=== PATIENT | male | born 1940 | race Caucasian/White ===

== ENCOUNTER 2019-04-22 08:06 | Inpatient (IN) | payer MEDICARE ==
[~2019-04-22] VITALS: Ht 175.3 cm; Wt 82.6 kg
[2019-04-22 08:52] LABS: BASOPHILS # (AUTO) 0.1 K/uL (0.0-8.0); BASOPHILS % (AUTO) 1.3 % (0.0-2.0); EOSINOPHILS # (AUTO) 0.3 K/uL (0.0-0.7); EOSINOPHILS % (AUTO) 2.7 % (0.0-7.0); HEMATOCRIT 42.5 % (36.7-47.1); LYMPHOCYTES # (AUTO) 1.4 K/uL (20.0-40.0); LYMPHOCYTES % (AUTO) 14.5 % (20.5-51.5); MEAN CORPUSCULAR HEMOGLOBIN 29.7 uug (23.8-33.4); MEAN CORPUSCULAR HGB CONC 33 g/dL (32.5-36.3); MEAN CORPUSCULAR VOLUME 90.4 fL (73.0-96.2); MONOCYTES # (AUTO) 0.9 K/uL (2.0-10.0); MONOCYTES % (AUTO) 9.4 % (0.0-11.0); NEUTROPHILS # (AUTO) 7.1 K/uL (1.8-8.9); NEUTROPHILS % (AUTO) 72.1 % (38.5-71.5); PLATELET COUNT (AUTO) 388 K/uL (152-348); WHITE BLOOD COUNT (AUTO) 9.9 K/uL (3.6-10.2)
[2019-04-22 10:21] LABS: *BILIRUBIN,URIN NEGATIVE (NEGATIVE); *CLARITY,URINE CLEAR (CLEAR); *COLOR,URINE YELLOW (YELLOW); *KETONES,URINE NEGATIVE (NEGATIVE); *UROBILINOGEN,URINE 0.2 E.U./dl (NORMAL); LEUKOCYTE ESTERASE ,URINE NEGATIVE (NEGATIVE); NITRITE, URINE NEGATIVE (NEGATIVE); PH,URINE 6.5 (5.0-8.0); UGLUCOSE NEGATIVE (NEGATIVE)
[2019-04-22 10:38] LABS: *BLOOD, URINE TRACE INTACT (NEGATIVE)
[2019-04-22 10:41] LABS: BACTERIA,URINE NONE SEEN /HPF (NONE SEEN); RBC,URINE 0-3 /HPF (0-3); SQUAMOUS EPITHELIAL CELL,UR FEW /HPF (NONE SEEN); WBC,URINE 0-3 /HPF (0-3)
[2019-04-22] MEDS ORDERED: HYDROMORPHONE 2 MG/1 ML DISP.SYRIN ONE (11:31)
[2019-04-22] MEDS ORDERED: BUPIVACAINE PF 0.5% 30 ML VIAL ONE (11:44)
[2019-04-22] MEDS ORDERED: FENTANYL CITRATE 100 MCG/2 ML AMPUL ONE (13:02)
[2019-04-22] MEDS ORDERED: HYDROMORPHONE 1 MG/1 ML DISP.SYRIN ONE (13:13)
[2019-04-22] MEDS ORDERED: POLYMYXIN B SULFATE 500,000 UNITS, BACITRACIN 50,000 UNITS, NORMAL SALINE 20 ML MC ONE ×3 (13:15)
[2019-04-22] MEDS ORDERED: ONDANSETRON 4 MG/2 ML VIAL ONE (13:20)
[2019-04-22] MEDS ORDERED: MORPHINE SULFATE 2 MG/1 ML DISP.SYRIN IV PRN (13:30)
[2019-04-22] MEDS ORDERED: IV D5W-0.45% NS +20 KCL 1,000 ML IV ONE (14:01)
[2019-04-22] MEDS ORDERED: OXYC5CAP18 PO (14:50)
[2019-04-22] MEDS ORDERED: IBUP200C5 PO (14:50)
[2019-04-22] MEDS ORDERED: ASPI81TA44 PO (14:50)
[2019-04-22] MEDS ORDERED: ATOR20TA PO (14:50)
[2019-04-22] MEDS ORDERED: VITAMIND3 PO (14:51)
[2019-04-22] MEDS ORDERED: METO25TA6 PO (14:51)
[2019-04-22] MEDS ORDERED: VITA-287 PO (14:51)
[2019-04-22] MEDS ORDERED: VITAMIN C (14:51)
[2019-04-22] MEDS ORDERED: MULT-24 PO (14:51)
[2019-04-22] MEDS ORDERED: GLUC-141 PO (14:53)
[2019-04-22] MEDS ORDERED: COQ10 PO (14:53)
[2019-04-22] MEDS ORDERED: TURMERIC PO (14:53)
[2019-04-22] MEDS ORDERED: MAGNESIUM HYDROXIDE 30 ML LIQUID UDC PO PRN (15:00)
[2019-04-22] MEDS ORDERED: ACETAMINOPHEN 325 MG TABLET PO PRN (15:00)
[2019-04-22] MEDS ORDERED: ONDANSETRON 4 MG/2 ML VIAL IV PRN (15:00)
[2019-04-22] MEDS ORDERED: HYDROCODONE/APAP 5-325MG TABLET PO PRN (15:00)
[2019-04-22] MEDS ORDERED: Z GUARD REMEDY PASTE 57 GM TUBE TOP PRN (15:00)
[2019-04-22] MEDS ORDERED: Medication Not On Formulary EA (Oxycodone Hcl 5 MG) PO PRN (15:15)
[2019-04-22 16:01] VITALS: BP 142/55
[2019-04-22] MEDS: POTASSIUM CHLORIDE 20 MEQ in IV D5 1/2 NS 1000 ML 1,000 ML IV PRN (17:45)
--- NOTE | 2019-04-22 18:39 | NUR ---
Received pt. resting in bed with family at bedside. Pt. s/p ORIF right femoral neck fracture. Pt. has IV in r forearm intact patent running prescribed fluid at 75 mls/ hr. bilateral pedal pulses present. Ice pack on R femor. Dressing is clean and dry. Pt. on 3 L NC. Pt. denies pain/ discomfort. Pt. denies SOB / difficulty breathing. Safety measures in place. call light within reach. will continue to monitor pt.
--- NOTE | 2019-04-22 19:30 | NUR ---
Received patient in bed AAOx4. No complaints of pain at this time. IV on RFA intact and patent w/ IVF infusing. s/p ORIF of R femoral neck fx, w/ clean, dry dressing in place. Instructed patient to use Incentive spirometer. Safety measures observed. Call light in reach
[2019-04-22 20:00] VITALS: BP 118/55
[2019-04-22] MEDS: METOPROLOL TARTRATE 25 MG TABLET PO SCH (21:00)
[2019-04-22] MEDS: HEPARIN SODIUM,PORCINE 5,000 UNITS/ML VIAL SQ SCH (21:06)
[2019-04-22] MEDS: ZOLPIDEM 5 MG TABLET PO PRN (22:00)
[2019-04-22] MEDS: HYDROCODONE/APAP 10-325 MG TABLET PO PRN (22:24)
[2019-04-23 04:50] VITALS: BP 110/55
[2019-04-23] MEDS: POTASSIUM CHLORIDE 20 MEQ in IV D5 1/2 NS 1000 ML 1,000 ML IV PRN ×2 (06:27→20:45)
--- NOTE | 2019-04-23 06:40 | NUR ---
Patient slept well. No complaints of pain at this time. All needs attended. Will endorse accordingly
[2019-04-23 06:52] LABS: BASOPHILS % (AUTO) 0.1 % (0.0-2.0); EOSINOPHILS % (AUTO) 0.1 % (0.0-7.0); HEMATOCRIT 38.8 % (36.7-47.1); HEMOGLOBIN 12.8 g/dL (12.5-16.3); LYMPHOCYTES # (AUTO) 1.3 K/uL (20.0-40.0); LYMPHOCYTES % (AUTO) 7.6 % (20.5-51.5); MEAN CORPUSCULAR HEMOGLOBIN 29.1 uug (23.8-33.4); MEAN CORPUSCULAR HGB CONC 33 g/dL (32.5-36.3); MEAN CORPUSCULAR VOLUME 88.1 fL (73.0-96.2); MONOCYTES # (AUTO) 1.3 K/uL (2.0-10.0); MONOCYTES % (AUTO) 7.7 % (0.0-11.0); NEUTROPHILS # (AUTO) 14.1 K/uL (1.8-8.9); NEUTROPHILS % (AUTO) 84.5 % (38.5-71.5); PLATELET COUNT (AUTO) 415 K/uL (152-348); WHITE BLOOD COUNT (AUTO) 16.7 K/uL (3.6-10.2)
[2019-04-23 06:58] LABS: CARBON DIOXIDE 27 mmol/L (21-32); CHLORIDE 103 mmol/L (98-107); CHOLESTEROL 138 mg/dL (<200); CREATININE 1.1 mg/dL (0.6-1.3); GLUCOSE 137 mg/dL (74-106); HDL CHOLESTEROL 50 mg/dL (40-60); MAGNESIUM 1.6 mg/dL (1.8-2.4); PHOSPHOROUS 3.7 mg/dL (2.5-4.9); POTASSIUM 4.5 mmol/L (3.5-5.1); TRIGLYCERIDES 67 MG/DL (30-150); UREA NITROGEN, BLOOD 18 mg/dL (7-18)
[2019-04-23] MEDS ORDERED: Medication Not On Formulary EA (Gluc/Chon-Msm#2/C/D3/Mang/Born (Glucosamin-Chondroitin-M PO SCH (09:00)
[2019-04-23] MEDS ORDERED: IBUPROFEN 200 MG PO SCH (09:00)
[2019-04-23] MEDS: ATORVASTATIN 20 MG TABLET PO SCH (09:42)
[2019-04-23] MEDS: ASPIRIN EC 81 MG TABLET.DR PO SCH (09:42)
[2019-04-23] MEDS: HYDROCODONE/APAP 10-325 MG TABLET PO PRN ×3 (09:44→21:37)
[2019-04-23] MEDS: MULTIVITAMINS,THERAPEUTIC TABLET PO SCH (09:44)
[2019-04-23] MEDS: METOPROLOL TARTRATE 25 MG TABLET PO SCH ×2 (09:45→20:48)
[2019-04-23] MEDS: HEPARIN SODIUM,PORCINE 5,000 UNITS/ML VIAL SQ SCH ×2 (09:46→20:55)
[2019-04-23 11:05] VITALS: BP 115/50
[2019-04-23] MEDS ORDERED: MAGNESIUM OXIDE 400 MG TABLET PO ONE (11:30)
[2019-04-23] MEDS: VITAMIN B COMPLEX 1 TABLET PO SCH (14:46)
[2019-04-23 15:21] VITALS: BP 111/42
--- NOTE | 2019-04-23 19:30 | NUR ---
Received patient in bed AAOx4 w/ Family at bedside. No complaints of pain at this time. IV on RFA intact and patent w/ IVF infusing. Safety measures observed. Call light in reach
[2019-04-23 20:00] VITALS: BP 123/54
[2019-04-23] MEDS: ZOLPIDEM 5 MG TABLET PO PRN (22:03)
[2019-04-24 04:30] VITALS: BP 150/69
--- NOTE | 2019-04-24 06:47 | NUR ---
Patient requested for sleeping pill last night and slept well throughout the night. No complaints of pain at this time. All needs attended. Will endorse accordingly
--- NOTE | 2019-04-24 08:04 | NUR ---
RECEIVED PT RESTING IN BED. PT DENIES PAIN AT THIS TIME. NO ACUTE DISTRESS NOTED. NO SOB NOTED. BED LOCKED. BED IN LOW POSITION. CALL LIGHT WITHIN REACH. WILL CONTINUE TO MONITOR.
[2019-04-24] MEDS: VITAMIN B COMPLEX 1 TABLET PO SCH (09:50)
[2019-04-24] MEDS: ASPIRIN EC 81 MG TABLET.DR PO SCH (09:53)
[2019-04-24] MEDS: ATORVASTATIN 20 MG TABLET PO SCH (09:54)
[2019-04-24] MEDS: HEPARIN SODIUM,PORCINE 5,000 UNITS/ML VIAL SQ SCH (09:54)
[2019-04-24] MEDS: MULTIVITAMINS,THERAPEUTIC TABLET PO SCH (09:54)
[2019-04-24] MEDS: METOPROLOL TARTRATE 25 MG TABLET PO SCH (09:55)
[2019-04-24] MEDS: HYDROCODONE/APAP 10-325 MG TABLET PO PRN ×2 (10:05→15:17)
[2019-04-24] MEDS: POTASSIUM CHLORIDE 20 MEQ in IV D5 1/2 NS 1000 ML 1,000 ML IV PRN (10:11)
[2019-04-24 11:38] VITALS: BP 166/72
[2019-04-24 11:46] VITALS: BP 166/72
--- NOTE | 2019-04-24 12:00 | NUR ---
ORDER FOR DISCHARGE TO [facility] ARU RECEIVED.
[2019-04-24 12:45] VITALS: BP 126/51
--- NOTE | 2019-04-24 15:30 | NUR ---
PT DISCHARGED TO [facility] ARU UNIT. NO ACUTE DISTRESS OR SOB NOTED. ALL BELONGINGS RETURNED. DISCHARGE INSTRUCTIONS GIVEN TO PATIENT AND RECEIVING ARU STAFF. PAIN MEDS GIVEN PRIOR TO DISCHARGE. PT ESCORTED TO ARU ROOM 106 BY RN AND BEATER DUMPER VIA BED. DISCHARGE TRANSFER COMPLETED.
[2019-04-24] MEDS ORDERED: SEVOFLURANE 250 ML BOTTLE IH ONE (17:29)
[2019-04-24] MEDS ORDERED: KETOROLAC TROMETHAMINE 30 MG INJ IM ONE (17:29)
[2019-04-24] MEDS ORDERED: ONDANSETRON 4 MG/2 ML VIAL IV ONE (17:29)
[2019-04-24] MEDS ORDERED: LIDOCAINE-MPF 2% 5 ML VIAL IJ ONE (17:29)
[2019-04-24] MEDS ORDERED: DEXAMETHASONE SOD PHOSPHATE 4 MG INJ IV ONE (17:29)
[2019-04-24] MEDS ORDERED: CEFAZOLIN 1 G VIAL IM ONE (17:29)
[2019-04-24] MEDS ORDERED: PROPOFOL 200 MG/20 ML BOTTLE IV ONE (17:29)
[2019-04-24] MEDS ORDERED: IV NORMAL SALINE 1000 ML BAG IV ONE (17:29)
[2019-04-24] MEDS ORDERED: GLYCOPYRROLATE 0.2 MG/ML VIAL IJ ONE (17:29)
[2019-04-24] MEDS ORDERED: HYDR-4354 PO (18:32)
[2019-04-24] MEDS ORDERED: SENN-18 PO (18:32)
[2019-04-24] MEDS ORDERED: MAGN400O6 PO (18:32)
[2019-04-24] MEDS ORDERED: HEPA500034 SUBCUT (18:32)
[2019-04-24] MEDS ORDERED: METO25TA6 PO (18:32)
[2019-04-24] MEDS ORDERED: ACET-2154 PO (18:32)
== END 2019-04-24 17:30 | DRG 482 ==
LOC: DS 08:06 → MEDSURG3 13:53
PROVIDERS: ADMIT Hospitalist; ATTEND Hospitalist
PROC: 0QS604Z Reposition Right Upper Femur with Internal Fixation Device, Open Approach (ICD-10-PCS; principal; 2019-04-22)
DX: S72.001A Fracture of unspecified part of neck of right femur, initial encounter for closed fracture (principal); W01.0XXA Fall on same level from slipping, tripping and stumbling without subsequent striking against object, initial encounter; Y92.89 Other specified places as the place of occurrence of the external cause; I25.10 Atherosclerotic heart disease of native coronary artery without angina pectoris; Z95.5 Presence of coronary angioplasty implant and graft; F17.210 Nicotine dependence, cigarettes, uncomplicated; E78.5 Hyperlipidemia, unspecified; Z79.899 Other long term (current) drug therapy; Z79.82 Long term (current) use of aspirin; I10 Essential (primary) hypertension; Z82.49 Family history of ischemic heart disease and other diseases of the circulatory system; D72.829 Elevated white blood cell count, unspecified
CPT/HCPCS: 36415; 71045; 73503; 83735; 84100; 85025; A4649; A4663; C1713; G0378; J0690; J1100; J1170; J1644; J1885; J2405; J3010; J3480; J3490; J7030; J7120

== ENCOUNTER 2019-04-24 12:05 | Inpatient (IN) | payer MEDICARE ==
[~2019-04-24] VITALS: Ht 175.3 cm; Wt 82.6 kg
[~2019-04-24 12:05] MED LIST: ASPI81TA44 PO; ATOR20TA PO; COQ10 PO; GLUC-141 PO; IBUP200C5 PO; METO25TA6 PO; MULT-24 PO; OXYC5CAP18 PO; TURMERIC PO; VITA-287 PO; VITAMIN C; VITAMIND3 PO
[2019-04-24] MEDS ORDERED: Z GUARD REMEDY PASTE 57 GM TUBE TOP PRN (16:15)
[2019-04-24] MEDS ORDERED: ACET-2154 PO (18:32)
[2019-04-24] MEDS ORDERED: METO25TA6 PO (18:32)
[2019-04-24] MEDS ORDERED: SENN-18 PO (18:32)
[2019-04-24] MEDS ORDERED: HYDR-4354 PO (18:32)
[2019-04-24] MEDS ORDERED: HEPA500034 SUBCUT (18:32)
[2019-04-24] MEDS ORDERED: MAGN400O6 PO (18:32)
--- NOTE | 2019-04-24 19:00 | NUR ---
Admitted this 79 y/o male from [facility] medsurge unit, with diagnosis of right femoral neck fracture S/P ORIF (04/22/19) by Dr. Coello. Patient is alert, oriented x 4 not in any form of distress at 2LPM via nasal cannula. He denies any pain or discomfort at this time. With peripheral IV line on right forearm G20, patent with no signs of infection. Original surgical dressing in place, clean and dry. Routine admission care done. Oriented patient to staff, room and use of room amenities and functions with verbalized understanding. Assisted with his needs. Call light and frequently used items placed within reach. Dr. Ames made aware of admission, verified medications and laboratory orders and need to reconcile medications. Dr. Shine informed of admission.
--- NOTE | 2019-04-24 20:00 | NUR ---
Received pt resting in bed. AAO x4. On 1L O2 via NC. No acute distress noted. Safety measures maintained. Call light and personal items within reach. Will continue to monitor.
[2019-04-24 20:11] VITALS: BP 132/62
[2019-04-24] MEDS ORDERED: Medication Not On Formulary EA (Heparin Sodium,Porcine (Heparin Sodium) 5,000 UNIT) SUBCUT SCH (21:00)
--- NOTE | 2019-04-24 21:00 | NUR ---
Change of assignment. SBAR reported to Leandra GALLARDO.
[2019-04-24] MEDS: SENNOSIDES 1 TABLET PO SCH (21:02)
[2019-04-24] MEDS: METOPROLOL TARTRATE 25 MG TABLET PO SCH (21:03)
[2019-04-24] MEDS: HYDROCODONE/APAP 10-325 MG TABLET PO PRN (21:04)
[2019-04-24] MEDS: HEPARIN SODIUM,PORCINE 5,000 UNITS/ML VIAL SQ SCH (22:03)
[2019-04-25 03:40] VITALS: BP 134/68
[2019-04-25] MEDS: ACETAMINOPHEN 325 MG TABLET PO PRN ×2 (03:40→10:08)
[2019-04-25] MEDS ORDERED: HYDROCODONE/APAP 10-325 MG TABLET ONE (03:41)
--- NOTE | 2019-04-25 05:43 | NUR ---
patient is alert and oriented. refused skin check and check of the incision site, unable to take a picture and document. will inform the physician in am.
[2019-04-25] MEDS: HYDROCODONE/APAP 10-325 MG TABLET PO PRN ×3 (06:10→20:21)
[2019-04-25 07:30] VITALS: BP 132/55
[2019-04-25] MEDS ORDERED: Medication Not On Formulary EA (Gluc/Chon-Msm#2/C/D3/Mang/Born (Glucosamin-Chondroitin-M PO SCH (09:00)
[2019-04-25] MEDS: MULTIVITAMINS,THERAPEUTIC TABLET PO SCH (09:13)
[2019-04-25] MEDS: ATORVASTATIN 20 MG TABLET PO SCH (09:13)
[2019-04-25] MEDS: ASPIRIN EC 81 MG TABLET.DR PO SCH (09:13)
[2019-04-25] MEDS: VITAMIN B COMPLEX 1 TABLET PO SCH (09:13)
[2019-04-25] MEDS: MAGNESIUM HYDROXIDE 30 ML LIQUID UDC PO SCH (09:14)
[2019-04-25] MEDS: METOPROLOL TARTRATE 25 MG TABLET PO SCH ×2 (09:14→20:21)
[2019-04-25] MEDS: HEPARIN SODIUM,PORCINE 5,000 UNITS/ML VIAL SQ SCH ×2 (09:16→20:30)
--- NOTE | 2019-04-25 14:22 | NUR ---
INTERDISCIPLINARY TEAM CONFERENCE
[2019-04-25 16:00] VITALS: BP 118/48
[2019-04-25] MEDS: SENNOSIDES 1 TABLET PO SCH (20:20)
[2019-04-25 21:37] VITALS: BP 133/67
--- NOTE | 2019-04-26 03:34 | NUR ---
pt is currently sleeping. pain is well managed with current regimen. No fever, no nausea and no vomiting.
[2019-04-26 05:11] VITALS: BP 135/61
[2019-04-26 08:16] VITALS: BP 115/61
[2019-04-26] MEDS: ATORVASTATIN 20 MG TABLET PO SCH (08:23)
[2019-04-26] MEDS: VITAMIN B COMPLEX 1 TABLET PO SCH (08:23)
[2019-04-26] MEDS: ASPIRIN EC 81 MG TABLET.DR PO SCH (08:23)
[2019-04-26] MEDS: MULTIVITAMINS,THERAPEUTIC TABLET PO SCH (08:23)
[2019-04-26] MEDS: METOPROLOL TARTRATE 25 MG TABLET PO SCH ×2 (08:25→20:38)
[2019-04-26] MEDS: MAGNESIUM HYDROXIDE 30 ML LIQUID UDC PO SCH (08:26)
[2019-04-26] MEDS: HEPARIN SODIUM,PORCINE 5,000 UNITS/ML VIAL SQ SCH ×2 (08:36→20:47)
[2019-04-26] MEDS: HYDROCODONE/APAP 10-325 MG TABLET PO PRN ×2 (08:38→20:39)
[2019-04-26] MEDS: ACETAMINOPHEN 325 MG TABLET PO PRN (13:13)
[2019-04-26 15:38] VITALS: BP 122/69
[2019-04-26 20:32] VITALS: BP 145/65
[2019-04-26] MEDS: SENNOSIDES 1 TABLET PO SCH (20:39)
--- NOTE | 2019-04-26 21:25 | NUR ---
Received pt resting in bed and watching tv. AAO x4. No acute distress noted. C/o 6/10 pain on the tight hip, PRN [place] given. Due meds given as ordered. Safety measures maintained. Call light and personal items within reach. Will continue to monitor.
[2019-04-27] MEDS: ACETAMINOPHEN 325 MG TABLET PO PRN (01:35)
[2019-04-27 05:13] VITALS: BP 131/67
[2019-04-27 07:55] VITALS: BP 136/65
[2019-04-27] MEDS: ATORVASTATIN 20 MG TABLET PO SCH (08:46)
[2019-04-27] MEDS: MULTIVITAMINS,THERAPEUTIC TABLET PO SCH (08:46)
[2019-04-27] MEDS: MAGNESIUM HYDROXIDE 30 ML LIQUID UDC PO SCH (08:46)
[2019-04-27] MEDS: ASPIRIN EC 81 MG TABLET.DR PO SCH (08:46)
[2019-04-27] MEDS: METOPROLOL TARTRATE 25 MG TABLET PO SCH ×2 (08:47→20:23)
[2019-04-27] MEDS: VITAMIN B COMPLEX 1 TABLET PO SCH (08:47)
[2019-04-27] MEDS: HEPARIN SODIUM,PORCINE 5,000 UNITS/ML VIAL SQ SCH ×2 (08:52→20:28)
[2019-04-27] MEDS: HYDROCODONE/APAP 10-325 MG TABLET PO PRN ×2 (09:09→20:25)
--- NOTE | 2019-04-27 11:43 | NUR ---
INDIVIDUALIZE PLAN OF CARE
[2019-04-27 16:27] VITALS: BP 138/57
[2019-04-27] MEDS: SENNOSIDES 1 TABLET PO SCH (20:23)
[2019-04-27 20:55] VITALS: BP 138/60
--- NOTE | 2019-04-27 22:20 | NUR ---
Received pt resting in bed and talking on the phone. AAO x4. No acute distress noted. C/o 01/08 pain on the right hip, PRN [place] given. Due meds given as ordered. Safety measures maintained. Call light and personal items within reach. Will continue to monitor.
[2019-04-28] MEDS: ATORVASTATIN 20 MG TABLET PO SCH (08:01)
[2019-04-28] MEDS: ASPIRIN EC 81 MG TABLET.DR PO SCH (08:01)
[2019-04-28] MEDS: VITAMIN B COMPLEX 1 TABLET PO SCH (08:01)
[2019-04-28] MEDS: MULTIVITAMINS,THERAPEUTIC TABLET PO SCH (08:01)
[2019-04-28] MEDS: ACETAMINOPHEN 325 MG TABLET PO PRN ×2 (08:01→13:57)
[2019-04-28] MEDS: MAGNESIUM HYDROXIDE 30 ML LIQUID UDC PO SCH (08:01)
[2019-04-28] MEDS: HEPARIN SODIUM,PORCINE 5,000 UNITS/ML VIAL SQ SCH ×2 (08:02→20:23)
[2019-04-28] MEDS: METOPROLOL TARTRATE 25 MG TABLET PO SCH ×2 (08:02→20:19)
[2019-04-28 08:05] VITALS: BP 142/59
[2019-04-28] MEDS: HYDROCODONE/APAP 10-325 MG TABLET PO PRN ×3 (09:59→23:21)
--- NOTE | 2019-04-28 10:23 | NUR ---
Pt received resting in bed. AAOx4, able to make needs known. Pt requesting [place] 10 for 4-5/10 pain to Sx site right hip, prior to scheduled therapy. Pain medication administered per PRN orders. Bed in locked and lowest position with side rails up x2, alarm on. Call light within reach. Will continue to monitor for safety.
[2019-04-28 16:00] VITALS: BP 129/75
[2019-04-28] MEDS ORDERED: BISACODYL 10 MG SUPP.RECT RC PRN (18:30)
[2019-04-28 20:59] VITALS: BP 123/61
--- NOTE | 2019-04-29 03:05 | NUR ---
No acute events overnight, pt's pain is well managed with current pain regimen. No fever, no nausea and no vomiting. pt c/o constipation, pt has scheduled bowel regimen. Pt able to ambulate to bathroom with min assist. Will continue to monitor
[2019-04-29 07:51] VITALS: BP 147/62
--- NOTE | 2019-04-29 08:09 | NUR ---
Received patient in bed awake, in No acute distress. Greeted patient. No complains of pain at this time. Informed patient regarding stool softeners and constipation. and patient stated he will take his stool softeners for constipation. Vital signs taken and stable for patient will continue with care.
[2019-04-29] MEDS: VITAMIN B COMPLEX 1 TABLET PO SCH (08:38)
[2019-04-29] MEDS: ASPIRIN EC 81 MG TABLET.DR PO SCH (08:39)
[2019-04-29] MEDS: METOPROLOL TARTRATE 25 MG TABLET PO SCH ×2 (08:39→20:54)
[2019-04-29] MEDS: ATORVASTATIN 20 MG TABLET PO SCH (08:39)
[2019-04-29] MEDS: SENNOSIDES 1 TABLET PO SCH ×2 (08:40→17:00)
[2019-04-29] MEDS: MULTIVITAMINS,THERAPEUTIC TABLET PO SCH (08:40)
[2019-04-29] MEDS: MAGNESIUM HYDROXIDE 30 ML LIQUID UDC PO SCH (08:40)
[2019-04-29] MEDS: HEPARIN SODIUM,PORCINE 5,000 UNITS/ML VIAL SQ SCH ×2 (08:45→20:59)
[2019-04-29] MEDS: HYDROCODONE/APAP 10-325 MG TABLET PO PRN ×2 (13:58→21:00)
--- NOTE | 2019-04-29 19:15 | NUR ---
Patient in stable condition, No acute distress noted. [place] 10/325 administered for pain during PT/OT and effective. Pt. agreed to take MOM during shift and effective. Right hip dressing intact and dry. NO s/sx of infection noted. Safety needs in place, call light left at bed side, endorsed to next shift and will continue with care.
[2019-04-29 20:36] VITALS: BP 133/51
--- NOTE | 2019-04-30 04:23 | NUR ---
Patient received in bed, AAO x4. Not in acute distress or SOB. Able to make needs known. On room air. Complained of pain in right hip, [place] 10-325 mg administered and effective. All due medications given as ordered and well tolerated. Physical assessment done. All needs attended promptly. Fall prevention observed. Safety measures maintained. Bed in low and lock position, alarm on, side rails up x2 for safety. Call light and frequently used items within reach. Continue to monitor and will endorse to the day shift nurse accordingly.
[2019-04-30 04:50] VITALS: BP 148/54
[2019-04-30 07:45] VITALS: BP 136/62
[2019-04-30] MEDS: ASPIRIN EC 81 MG TABLET.DR PO SCH (08:53)
[2019-04-30] MEDS: VITAMIN B COMPLEX 1 TABLET PO SCH (08:53)
[2019-04-30] MEDS: MULTIVITAMINS,THERAPEUTIC TABLET PO SCH (08:53)
[2019-04-30] MEDS: MAGNESIUM HYDROXIDE 30 ML LIQUID UDC PO SCH (08:54)
[2019-04-30] MEDS: ATORVASTATIN 20 MG TABLET PO SCH (08:54)
[2019-04-30] MEDS: METOPROLOL TARTRATE 25 MG TABLET PO SCH ×2 (08:54→20:04)
[2019-04-30] MEDS: SENNOSIDES 1 TABLET PO SCH ×2 (08:54→16:13)
[2019-04-30] MEDS: HEPARIN SODIUM,PORCINE 5,000 UNITS/ML VIAL SQ SCH ×2 (08:59→20:06)
[2019-04-30] MEDS: HYDROCODONE/APAP 10-325 MG TABLET PO PRN ×2 (09:04→20:06)
[2019-04-30 15:43] VITALS: BP 127/52
--- NOTE | 2019-04-30 17:19 | NUR ---
Patient A&O x 4, able to express needs verbally. No acute distress. No New change of condition noted. [place] 10.325mg 1 tab administered before PT and effective. All other due medications administered as ordered and scheduled and tolerated well. patient seen by Dr. Acosta with No new orders. Dressing on the Right hip intact and dry. NO s/sx of infection noted. Needs attended, safety measures in place, call light left at bed side and will continue with care.
--- NOTE | 2019-04-30 19:30 | NUR ---
Patient received in bed resting. Alert and oriented x 4. C/O pain in the Left hip upon assessment. Will medicate. No c/o distress of SOB at this time. Left hip original foam still intact. Call light and frequently used items within reach. Side rails up bilaterally for safety. Will continue to monitor.
[2019-04-30 19:41] VITALS: BP 127/53
[2019-05-01 06:58] VITALS: BP 127/63
[2019-05-01 07:54] VITALS: BP 136/50
[2019-05-01] MEDS: SENNOSIDES 1 TABLET PO SCH (08:26)
[2019-05-01] MEDS: MAGNESIUM HYDROXIDE 30 ML LIQUID UDC PO SCH (08:26)
[2019-05-01] MEDS: ASPIRIN EC 81 MG TABLET.DR PO SCH (08:26)
[2019-05-01] MEDS: ATORVASTATIN 20 MG TABLET PO SCH (08:26)
[2019-05-01] MEDS: METOPROLOL TARTRATE 25 MG TABLET PO SCH ×2 (08:27→20:04)
[2019-05-01] MEDS: VITAMIN B COMPLEX 1 TABLET PO SCH (08:29)
[2019-05-01] MEDS: MULTIVITAMINS,THERAPEUTIC TABLET PO SCH (08:30)
[2019-05-01] MEDS: HYDROCODONE/APAP 10-325 MG TABLET PO PRN ×2 (08:33→20:04)
[2019-05-01] MEDS: HEPARIN SODIUM,PORCINE 5,000 UNITS/ML VIAL SQ SCH ×2 (08:47→20:08)
[2019-05-01] MEDS ORDERED: COQ PO SCH (09:00)
[2019-05-01] MEDS: ACETAMINOPHEN 325 MG TABLET PO PRN (13:04)
[2019-05-01 19:22] VITALS: BP 124/56
[2019-05-01 19:30] VITALS: BP 157/75
--- NOTE | 2019-05-01 19:30 | NUR ---
Patient received in bed resting. Family at bedside upon assessment. Alert and oriented x 4. C/O pain in the Left hip upon assessment. Will medicate. No c/o distress of SOB at this time. Left hip original foam still intact. Call light and frequently used items within reach. Side rails up bilaterally for safety. Will continue to monitor.
[2019-05-02] MEDS: ACETAMINOPHEN 325 MG TABLET PO PRN ×2 (02:54→08:10)
[2019-05-02 05:30] VITALS: BP 123/60
[2019-05-02] MEDS: ATORVASTATIN 20 MG TABLET PO SCH (08:08)
[2019-05-02] MEDS: ASPIRIN EC 81 MG TABLET.DR PO SCH (08:08)
[2019-05-02] MEDS: VITAMIN B COMPLEX 1 TABLET PO SCH (08:10)
[2019-05-02] MEDS: MULTIVITAMINS,THERAPEUTIC TABLET PO SCH (08:10)
[2019-05-02] MEDS: METOPROLOL TARTRATE 25 MG TABLET PO SCH ×2 (08:11→20:48)
[2019-05-02] MEDS: HEPARIN SODIUM,PORCINE 5,000 UNITS/ML VIAL SQ SCH ×2 (08:17→20:51)
[2019-05-02 09:00] VITALS: BP 133/58
--- NOTE | 2019-05-02 11:40 | NUR ---
Patient went out on pass for surgery consultation around 10am in stable condition. not in distress. Pain management given tylenol 650mg PRN given.
--- NOTE | 2019-05-02 13:12 | NUR ---
INTERDISCIPLINARY TEAM CONFERENCE
[2019-05-02] MEDS: HYDROCODONE/APAP 10-325 MG TABLET PO PRN ×2 (16:02→21:27)
[2019-05-02 19:19] VITALS: BP 126/58
--- NOTE | 2019-05-02 19:31 | NUR ---
Patient came back from outside consult with MD Coello. Wound open to air with steri strips. Continue therapy for ambulation and ADL ability. Pain management PRN with good effect. will continue monitor
--- NOTE | 2019-05-02 19:42 | NUR ---
Patient received in bed, AAO x4. Not in acute distress or SOB. Able to make needs known. On room air. Complained of pain in right hip. Physical assessment done. Fall prevention observed. Safety measures maintained. Bed in low and lock position, alarm on, side rails up x2 for safety. Call light and frequently used items within reach. Continue to monitor.
[2019-05-02 19:45] VITALS: BP 121/64
[2019-05-03] MEDS: HYDROCODONE/APAP 10-325 MG TABLET PO PRN ×2 (05:43→20:41)
[2019-05-03 06:00] VITALS: BP 140/54
[2019-05-03] MEDS: MULTIVITAMINS,THERAPEUTIC TABLET PO SCH (08:47)
[2019-05-03] MEDS: ASPIRIN EC 81 MG TABLET.DR PO SCH (08:48)
[2019-05-03] MEDS: ATORVASTATIN 20 MG TABLET PO SCH (08:48)
[2019-05-03] MEDS: METOPROLOL TARTRATE 25 MG TABLET PO SCH ×2 (08:54→20:42)
[2019-05-03] MEDS: VITAMIN B COMPLEX 1 TABLET PO SCH (08:54)
[2019-05-03] MEDS: HEPARIN SODIUM,PORCINE 5,000 UNITS/ML VIAL SQ SCH ×2 (08:58→20:49)
--- NOTE | 2019-05-03 09:05 | NUR ---
Patient noted sitting up in bed, requesting Tea at this time, no complaints of pain at this time, no signs of distress noted, took all Am medications, call light in reach, bed locked and in lowest position, all needs met.
[2019-05-03 14:53] VITALS: BP 134/68
--- NOTE | 2019-05-03 15:41 | NUR ---
patient left out on pass at this time, approved by MD Shine
[2019-05-03 19:45] VITALS: BP 131/58
--- NOTE | 2019-05-03 19:45 | NUR ---
Patient returned to the unit; brought him inside on wheelchair. No distress noted. Vital signs obtained and within normal limits. Pain assessment done, complains of pain of 6/10. Ice packs provided per patient request. Physical assessment done. Bed is in low position, locked, and bed alarm in on; side rails up x2 for safety. Call light and frequently used items within reach. Provided proper education. Will continue to monitor and provide care.
[2019-05-04 04:00] VITALS: BP 130/58
[2019-05-04] MEDS: HYDROCODONE/APAP 10-325 MG TABLET PO PRN ×3 (06:03→20:55)
--- NOTE | 2019-05-04 06:37 | NUR ---
All needs met and anticipated. No sings or symptoms of distress. Pain assessment done and medicated accordingly; tolerated well, pain medication effective. On room air; tolerating well. Patient slept without any issues. Will endorse.
[2019-05-04 08:00] VITALS: BP 136/59
[2019-05-04] MEDS: ATORVASTATIN 20 MG TABLET PO SCH (08:26)
[2019-05-04] MEDS: MULTIVITAMINS,THERAPEUTIC TABLET PO SCH (08:26)
[2019-05-04] MEDS: METOPROLOL TARTRATE 25 MG TABLET PO SCH ×2 (08:26→20:56)
[2019-05-04] MEDS: VITAMIN B COMPLEX 1 TABLET PO SCH (08:26)
[2019-05-04] MEDS: ASPIRIN EC 81 MG TABLET.DR PO SCH (08:26)
[2019-05-04] MEDS: HEPARIN SODIUM,PORCINE 5,000 UNITS/ML VIAL SQ SCH ×2 (08:39→20:58)
[2019-05-04 10:20] LABS: BASOPHILS # (AUTO) 0.1 K/uL (0.0-8.0); BASOPHILS % (AUTO) 0.8 % (0.0-2.0); EOSINOPHILS # (AUTO) 0.3 K/uL (0.0-0.7); HEMATOCRIT 40.9 % (36.7-47.1); HEMOGLOBIN 13.6 g/dL (12.5-16.3); LYMPHOCYTES # (AUTO) 1.7 K/uL (20.0-40.0); LYMPHOCYTES % (AUTO) 16.6 % (20.5-51.5); MEAN CORPUSCULAR HEMOGLOBIN 29.4 uug (23.8-33.4); MEAN CORPUSCULAR HGB CONC 33 g/dL (32.5-36.3); MEAN CORPUSCULAR VOLUME 88.2 fL (73.0-96.2); MONOCYTES # (AUTO) 0.9 K/uL (2.0-10.0); MONOCYTES % (AUTO) 9.3 % (0.0-11.0); NEUTROPHILS # (AUTO) 7.2 K/uL (1.8-8.9); NEUTROPHILS % (AUTO) 70.3 % (38.5-71.5); PLATELET COUNT (AUTO) 471 K/uL (152-348); RED BLOOD CELL COUNT(AUTO) 4.63 MIL/uL (4.06-5.63); WHITE BLOOD COUNT (AUTO) 10.2 K/uL (3.6-10.2)
[2019-05-04 10:29] LABS: CREATININE 1.2 mg/dL (0.6-1.3); POTASSIUM 4.1 mmol/L (3.5-5.1)
--- NOTE | 2019-05-04 11:07 | NUR ---
Patient noted sitting up in bed, no complaints of pain at this time, no signs of distress noted, took all Am medications, call light in reach, bed locked and in lowest position, all needs met.
[2019-05-04 20:28] VITALS: BP 129/60
[2019-05-05] MEDS: HYDROCODONE/APAP 10-325 MG TABLET PO PRN ×3 (03:18→22:37)
--- NOTE | 2019-05-05 04:34 | NUR ---
Patient received in bed, AAO x4. Not in acute distress or SOB. Able to make needs known. On room air. Complained of pain in right hip, rated his pain 6/10 in numeric scale. Nar[place] 10-325 mg administered and effective. All due medications given as ordered and well tolerated. Physical assessment done. All needs attended promptly. Fall prevention observed. Safety measures maintained. Bed in low and lock position, alarm on, side rails up x2 for safety. Call light and frequently used items within reach. Continue to monitor and will endorse to the day shift nurse accordingly.
--- NOTE | 2019-05-05 07:31 | NUR ---
Patient noted sitting up in bed watching tv, no complaints of pain at this time, no signs of distress noted, call light in reach, bed locked and in lowest position, all needs met.
[2019-05-05 07:52] VITALS: BP 121/55
[2019-05-05] MEDS: ATORVASTATIN 20 MG TABLET PO SCH (08:27)
[2019-05-05] MEDS: VITAMIN B COMPLEX 1 TABLET PO SCH (08:27)
[2019-05-05] MEDS: MULTIVITAMINS,THERAPEUTIC TABLET PO SCH (08:27)
[2019-05-05] MEDS: ASPIRIN EC 81 MG TABLET.DR PO SCH (08:27)
[2019-05-05] MEDS: METOPROLOL TARTRATE 25 MG TABLET PO SCH ×2 (08:28→20:23)
[2019-05-05] MEDS: HEPARIN SODIUM,PORCINE 5,000 UNITS/ML VIAL SQ SCH ×2 (08:34→20:27)
[2019-05-05 15:30] VITALS: BP_SYST 101; BP_SYST 137; BP_DIAS 61; BP_DIAS 62
[2019-05-05 20:07] VITALS: BP 134/62
--- NOTE | 2019-05-05 21:38 | NUR ---
resting in bed upon initial rounds. aaox4 no acute distress noted. denies any pain at this time. VSS compliant with meds. voiding freely. will monitor patient. kept comfortable. 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 fall precaution maintained.
--- NOTE | 2019-05-06 05:10 | NUR ---
Slept well most of the shift. medicated with [place] as ordered. Relief noted. Needs attended. Voiding well. Fall precautions maintained. Siderails up for safety. In good spirits. VSS. Will monitor patient.
[2019-05-06 07:30] VITALS: BP 141/47
[2019-05-06] MEDS: HEPARIN SODIUM,PORCINE 5,000 UNITS/ML VIAL SQ SCH (09:08)
[2019-05-06] MEDS: ATORVASTATIN 20 MG TABLET PO SCH (09:11)
[2019-05-06] MEDS: MULTIVITAMINS,THERAPEUTIC TABLET PO SCH (09:11)
[2019-05-06] MEDS: METOPROLOL TARTRATE 25 MG TABLET PO SCH ×2 (09:11→20:32)
[2019-05-06] MEDS: ASPIRIN EC 81 MG TABLET.DR PO SCH (09:11)
[2019-05-06] MEDS: VITAMIN B COMPLEX 1 TABLET PO SCH (09:15)
--- NOTE | 2019-05-06 12:38 | NUR ---
Patient continue therapy for ADL ability. Continue pain management if needed with good effect. not in distress. For discharge yenifer to home.
[2019-05-06 20:18] VITALS: BP 145/60
[2019-05-06] MEDS: HYDROCODONE/APAP 10-325 MG TABLET PO PRN (20:34)
--- NOTE | 2019-05-07 06:01 | NUR ---
Pt slept comfortably t/o the night. All needs attended to promptly. Due meds given last night. Safety measures maintained. Call light and personal items within reach. Will continue to monitor.
--- NOTE | 2019-05-07 06:02 | NUR ---
Pt to be discharge today. TMS signed and in chart.
[2019-05-07 08:03] VITALS: BP 128/61
[2019-05-07] MEDS: ATORVASTATIN 20 MG TABLET PO SCH (08:27)
[2019-05-07] MEDS: ASPIRIN EC 81 MG TABLET.DR PO SCH (08:27)
[2019-05-07] MEDS: MULTIVITAMINS,THERAPEUTIC TABLET PO SCH (08:27)
[2019-05-07 08:28] VITALS: BP 128/61
[2019-05-07] MEDS: METOPROLOL TARTRATE 25 MG TABLET PO SCH (08:28)
[2019-05-07] MEDS: HYDROCODONE/APAP 10-325 MG TABLET PO PRN (08:29)
[2019-05-07] MEDS: VITAMIN B COMPLEX 1 TABLET PO SCH (08:34)
--- NOTE | 2019-05-07 12:03 | NUR ---
Patient discharge around 12nn in stable condition with girlfriend via private car. refuse to take photo in surgical site. Discuss ff up appointment with the patient and verbalize understanding. medication prescription given. not in distress. MD Aware. will continue monitor
== END 2019-05-07 12:00 | disposition home health service (06) | DRG 561 ==
PROVIDERS: ADMIT Physical Medicine & Rehabilitation Pain Medicine; ATTEND Physical Medicine & Rehabilitation Pain Medicine
DX: S72.011D Unspecified intracapsular fracture of right femur, subsequent encounter for closed fracture with routine healing (principal); E78.5 Hyperlipidemia, unspecified; I10 Essential (primary) hypertension; I25.10 Atherosclerotic heart disease of native coronary artery without angina pectoris; Z95.5 Presence of coronary angioplasty implant and graft; W19.XXXD Unspecified fall, subsequent encounter; R73.03 Prediabetes; R26.9 Unspecified abnormalities of gait and mobility
CPT/HCPCS: 36415; 73501; 85025; A4663; J1644

== ENCOUNTER 2021-08-15 06:04 | Outpatient (CLI) | payer MEDICARE ==
[~2021-08-15 06:04] MED LIST changes: +ACET-2154 PO; +HEPA500034 SUBCUT; +HYDR-4354 PO; -IBUP200C5 PO; +MAGN400O6 PO; -OXYC5CAP18 PO; +SENN-18 PO; -VITAMIN C
[2021-08-16] MEDS ORDERED: ATOR20TA PO (12:42)
[2021-08-16] MEDS ORDERED: ASPI81TA31 PO (12:42)
[2021-08-16] MEDS ORDERED: ACET-2030 PO (12:48)
[2021-08-16] MEDS ORDERED: LOSA25TA27 PO (12:48)
[2021-08-16] MEDS ORDERED: METO-357 PO (12:48)
[2021-08-16] MEDS ORDERED: OXYC-128 PO (12:48)
[2021-08-16] MEDS ORDERED: GLUC100017 PO (12:48)
== END 2021-08-15 23:59 | disposition home or self-care (01) ==
LOC: LAB 06:04
PROVIDERS: ATTEND Specialist
DX: Z01.812 Encounter for preprocedural laboratory examination (principal); Z20.822 Contact with and (suspected) exposure to COVID-19

== ENCOUNTER 2021-08-16 07:20 | Inpatient (IN) | payer MEDICARE ==
[~2021-08-16] VITALS: Ht 172.7 cm; Wt 78.0 kg
[2021-08-16] MEDS ORDERED: KETOROLAC TROMETHAMINE 30 MG INJ IM ONE (08:00)
[2021-08-16] MEDS ORDERED: PROPOFOL 200 MG/20 ML BOTTLE IV ONE (08:00)
[2021-08-16] MEDS ORDERED: ONDANSETRON 4 MG/2 ML VIAL IV ONE (08:00)
[2021-08-16] MEDS ORDERED: LIDOCAINE-MPF 2% 5 ML VIAL IJ ONE (08:00)
[2021-08-16] MEDS ORDERED: DEXAMETHASONE SOD PHOSPHATE 4 MG INJ IV ONE (08:00)
[2021-08-16] MEDS ORDERED: CEFAZOLIN 1 G VIAL IM ONE (08:00)
[2021-08-16] MEDS ORDERED: SEVOFLURANE 250 ML BOTTLE IH ONE (08:00)
[2021-08-16 08:10] LABS: MEAN CORPUSCULAR HEMOGLOBIN 29.9 uug (23.8-33.4); MEAN CORPUSCULAR VOLUME 90.1 fL (73.0-96.2); PLATELET COUNT (AUTO) 313 K/uL (152-348)
[2021-08-16 08:19] LABS: CREATININE 1.1 mg/dL (0.6-1.3); POTASSIUM 4.2 mmol/L (3.5-5.1)
[2021-08-16] MEDS ORDERED: VANCOMYCIN 1000 MG VIAL ONE (08:23)
[2021-08-16] MEDS ORDERED: BUPIVACAINE PF 0.5% 30 ML VIAL ONE (08:24)
[2021-08-16 08:26] LABS: BILIRUBIN,TOTAL 0.6 mg/dL (0.2-1.0); TOTAL PROTEIN, SERUM 7.6 g/dL (6.4-8.2)
[2021-08-16] MEDS ORDERED: HYDROMORPHONE 2 MG/1 ML DISP.SYRIN ONE (09:44)
--- NOTE | 2021-08-16 11:00 | NUR ---
Admitted PT from OR Status post right hip screw exchange on 08-16-[address] Coello,do status post previous right hip ORIF in distant past C/O of right hip pain pt is AAOX4 respirations even and unlabored at room air no c/o of pain incision site with dressing intact no bleeding no s/s of complication PT to eval IV HL at left hand intact continent of B&B used urinal safety measures in place bed in lowest position call light at reach will continue to monitor closely.
[2021-08-16 12:00] VITALS: BP 119/49
[2021-08-16] MEDS ORDERED: ATOR20TA PO (12:42)
[2021-08-16] MEDS ORDERED: ASPI81TA31 PO (12:42)
[2021-08-16] MEDS ORDERED: MORPHINE SULFATE 4 MG/1 ML DISP.SYRIN IV PRN ×2 (12:45→14:00)
[2021-08-16] MEDS ORDERED: ONDANSETRON 4 MG/2 ML VIAL IV PRN ×2 (12:45→13:45)
[2021-08-16] MEDS ORDERED: ACET-2030 PO (12:48)
[2021-08-16] MEDS ORDERED: LOSA25TA27 PO (12:48)
[2021-08-16] MEDS ORDERED: OXYC-128 PO (12:48)
[2021-08-16] MEDS ORDERED: METO-357 PO (12:48)
[2021-08-16] MEDS ORDERED: GLUC100017 PO (12:48)
[2021-08-16] MEDS ORDERED: MORPHINE SULFATE 2 MG/1 ML DISP.SYRIN IV PRN (13:45)
[2021-08-16] MEDS ORDERED: REMEDY ESSENTIAL ZINC PASTE 113 GM TP PRN (13:45)
[2021-08-16] MEDS ORDERED: ACETAMINOPHEN 325 MG TABLET PO PRN (13:45)
[2021-08-16] MEDS ORDERED: ZOLPIDEM 5 MG TABLET PO PRN (13:45)
[2021-08-16] MEDS ORDERED: HYDROCODONE/APAP 5-325MG TABLET PO PRN (13:45)
[2021-08-16] MEDS ORDERED: MAGNESIUM HYDROXIDE 30 ML LIQUID UDC PO PRN (13:45)
[2021-08-16] MEDS ORDERED: ACETAMINOPHEN ES 500 MG TABLET PO PRN (14:00)
[2021-08-16 15:40] LABS: *BILIRUBIN,URIN NEGATIVE (NEGATIVE); *BLOOD, URINE NEGATIVE (NEGATIVE); *CLARITY,URINE CLEAR (CLEAR); *COLOR,URINE YELLOW (YELLOW); *KETONES,URINE TRACE (NEGATIVE); *UROBILINOGEN,URINE 0.2 E.U./dl (NORMAL); LEUKOCYTE ESTERASE ,URINE NEGATIVE (NEGATIVE); NITRITE, URINE NEGATIVE (NEGATIVE); PH,URINE 5.5 (5.0-8.0); UGLUCOSE NEGATIVE (NEGATIVE)
[2021-08-16 16:00] VITALS: BP 123/50
[2021-08-16 16:40] LABS: BACTERIA,URINE NONE SEEN /HPF (NONE SEEN); RBC,URINE 0-3 /HPF (0-3); SQUAMOUS EPITHELIAL CELL,UR NONE SEEN /HPF (NONE SEEN)
--- NOTE | 2021-08-16 16:50 | NUR ---
Pt requesting to ambulate with the walker , PT abdirizak still pending, called the exchange DR Coello office spoke to Kade left a massage for regarding PT weight bearing status at this time.
[2021-08-16] MEDS: CEFAZOLIN 1 G in IV DEXTROSE 5% 50 ML IV SCH (17:43)
--- NOTE | 2021-08-16 20:00 | NUR ---
Patient is comfortable in bed. Needs assessed and met. Questions regarding medication answered. Patient denies any pain to right hip, dressing in place, clean and dry. Call light within reach.
[2021-08-16] MEDS: METOPROLOL SUCCINATE XL 50 MG TAB.SR.24H PO SCH (20:28)
[2021-08-16] MEDS ORDERED: DOCUSATE SODIUM 100 MG CAPSULE PO SCH (21:00)
[2021-08-16] MEDS ORDERED: ATORVASTATIN 20 MG TABLET PO SCH (21:00)
[2021-08-17] MEDS: CEFAZOLIN 1 G in IV DEXTROSE 5% 50 ML IV SCH (01:00)
[2021-08-17 04:38] VITALS: BP 121/60
--- NOTE | 2021-08-17 05:40 | NUR ---
Patient slept well this shift. No complains of pain. States he was taking Bono prior to having this surgery but now the pain is completely gone. Right hip dressing is intact and clean. Minimal swelling noted to site. Patient is WBAT but did not ambulate this shift. Using urinal during shift. Call light within reach.
[2021-08-17 06:38] LABS: HEMATOCRIT 37.3 % (36.7-47.1); MEAN CORPUSCULAR HEMOGLOBIN 29.9 uug (23.8-33.4); PLATELET COUNT (AUTO) 294 K/uL (152-348)
[2021-08-17 06:49] LABS: CREATININE 1.2 mg/dL (0.6-1.3); MAGNESIUM 1.8 mg/dL (1.8-2.4); PHOSPHOROUS 4.2 mg/dL (2.5-4.9); POTASSIUM 4.5 mmol/L (3.5-5.1)
[2021-08-17] MEDS ORDERED: PANTOPRAZOLE SODIUM 40 MG TABLET.DR PO SCH (07:00)
[2021-08-17 07:59] LABS: THYROID STIMULATING HORMONE 0.488 mIU/mL (0.358-3.740)
[2021-08-17] MEDS ORDERED: LOSARTAN POTASSIUM 25 MG TABLET PO SCH (09:00)
[2021-08-17] MEDS ORDERED: ASPIRIN 81 MG TAB.CHEW PO SCH (09:00)
--- NOTE | 2021-08-17 09:00 | NUR ---
Received PT AAOX4 sitting in the chair having breakfast, on room air no complains of pain. Right hip dressing is intact and clean. Minimal swelling noted to site. Patient Up with PT ambulate with FWW . Using urinal during shift. Call light with reach will continue to monitor
[2021-08-17] MEDS: METOPROLOL SUCCINATE XL 50 MG TAB.SR.24H PO SCH (09:14)
[2021-08-17 11:55] VITALS: BP 126/57
--- NOTE | 2021-08-17 14:49 | NUR ---
Discharged PT.he is going home, discharge instructions, prescription , personal belongings, and walker given to PT,IV HL and ID band was removed he left in stable condition was bulk picker by his friend .
== END 2021-08-17 14:45 | disposition home or self-care (01) | DRG 481 ==
LOC: DS 07:20 → MEDSURG3 11:37
PROVIDERS: ADMIT Registered Nurse; ATTEND Registered Nurse
PROC: 0QP Lower Bones, Removal (ICD-10-PCS; principal; 2021-08-16)
PROC: 0QH634Z Insertion of Internal Fixation Device into Right Upper Femur, Percutaneous Approach (ICD-10-PCS; principal; 2021-08-16)
DX: T84.84XA Pain due to internal orthopedic prosthetic devices, implants and grafts, initial encounter (principal); I50.42 Chronic combined systolic (congestive) and diastolic (congestive) heart failure; G89.4 Chronic pain syndrome; Z95.0 Presence of cardiac pacemaker; I25.10 Atherosclerotic heart disease of native coronary artery without angina pectoris; Z87.891 Personal history of nicotine dependence; Z79.891 Long term (current) use of opiate analgesic; Z95.5 Presence of coronary angioplasty implant and graft; I11.0 Hypertensive heart disease with heart failure; I25.2 Old myocardial infarction; Y83.1 Surgical operation with implant of artificial internal device as the cause of abnormal reaction of the patient, or of later complication, without mention of misadventure at the time of the procedure; Z87.81 Personal history of (healed) traumatic fracture; Y92.009 Unspecified place in unspecified non-institutional (private) residence as the place of occurrence of the external cause
CPT/HCPCS: 36415; 71045; 73503; 83735; 84100; 84443; 85025; 85730; 97161; A4649; A4663; C1713; C713; G0378; J0690; J1100; J1170; J1885; J2405; J3370; J3490; J7040; J7060; J7120

== ENCOUNTER 2021-09-26 07:56 | Outpatient (CLI) | payer MEDICARE ==
[~2021-09-26 07:56] MED LIST changes: +ACET-2030 PO; -ACET-2154 PO; +ASPI81TA31 PO; -ASPI81TA44 PO; -COQ10 PO; -GLUC-141 PO; -HEPA500034 SUBCUT; -HYDR-4354 PO; +LOSA25TA27 PO; -MAGN400O6 PO; +METO-357 PO; -METO25TA6 PO; -MULT-24 PO; +OXYC-128 PO; -SENN-18 PO; -TURMERIC PO; -VITA-287 PO; -VITAMIND3 PO
== END 2021-09-26 13:34 | disposition home or self-care (01) ==
LOC: LAB 07:56
PROVIDERS: ATTEND Orthopaedic Surgery Sports Medicine
DX: Z01.812 Encounter for preprocedural laboratory examination (principal); Z20.822 Contact with and (suspected) exposure to COVID-19

== ENCOUNTER 2021-09-28 07:10 | Inpatient (IN) | payer MEDICARE ==
[~2021-09-28] VITALS: Ht 172.7 cm; Wt 78.0 kg
[2021-09-28] MEDS ORDERED: FENTANYL CITRATE 250 MCG/5 ML AMPUL ONE (07:44)
[2021-09-28] MEDS ORDERED: ROCURONIUM BROMIDE 50 MG/5 ML VIAL ONE ×3 (07:44→09:39)
[2021-09-28] MEDS ORDERED: HYDROMORPHONE 2 MG/1 ML DISP.SYRIN ONE (07:45)
[2021-09-28] MEDS ORDERED: OXYCODONE/APAP 5-325 MG TABLET ONE (07:53)
[2021-09-28] MEDS ORDERED: BUPIVACAINE/EPI PF 0.5% 10 ML VIAL ONE (08:29)
[2021-09-28] MEDS ORDERED: VANCOMYCIN 1000 MG VIAL ONE (09:15)
[2021-09-28] MEDS ORDERED: FENTANYL CITRATE 100 MCG/2 ML AMPUL ONE ×2 (11:19→11:43)
[2021-09-28] MEDS ORDERED: ONDANSETRON 4 MG/2 ML VIAL ONE (12:39)
[2021-09-28] MEDS ORDERED: HYDROMORPHONE 1 MG/1 ML DISP.SYRIN ONE (12:39)
--- NOTE | 2021-09-28 13:00 | NUR ---
patient transferred from OR s/p right hip total hip revision. patient arrived via gurney accompanied by 2 rns. patient is alert and oriented x4 able to make needs known. skin assessment complete noted with right hip incision, covered with aquacelle dressing clean and dry, no bleeding noted to site. patient currently on 2L of o2 with spo2 100%, respirations are even and non-labored, 0 episodes of sob at this time, lungs are clear. patient is to remain bedbound until 09/29 when PT evaluates patient, right extremity is slightly cool to touch at this time, no bleeding noted to site, pedal pulses weak but present. abduction pillow in place at this time, reminded patient not to remove it. patient is currently on dislocation precautions. abdomen is soft and non-tender, bowel sounds active to all quadrants. patient is continent reminded that we can use urinal at this time due to pending PT eval. oriented patient to unit, reminded to use call light for assistance.
[2021-09-28 13:15] VITALS: BP 100/42
[2021-09-28] MEDS ORDERED: MORPHINE SULFATE 4 MG/1 ML DISP.SYRIN IV PRN (13:45)
[2021-09-28] MEDS ORDERED: ONDANSETRON 4 MG/2 ML VIAL IV PRN ×2 (13:45→14:30)
[2021-09-28] MEDS ORDERED: ZOLPIDEM 5 MG TABLET PO PRN ×2 (14:30→20:15)
[2021-09-28] MEDS ORDERED: HYDROMORPHONE 1 MG/1 ML DISP.SYRIN IV PRN (14:30)
[2021-09-28] MEDS ORDERED: ACETAMINOPHEN ES 500 MG TABLET PO PRN (14:30)
[2021-09-28] MEDS ORDERED: MAGNESIUM HYDROXIDE 30 ML LIQUID UDC PO PRN (14:30)
[2021-09-28] MEDS ORDERED: ACETAMINOPHEN 325 MG TABLET PO PRN (14:30)
[2021-09-28] MEDS ORDERED: REMEDY ESSENTIAL ZINC PASTE 113 GM TP PRN (14:30)
[2021-09-28] MEDS ORDERED: IV NORMAL SALINE 500 ML BAG IV ONE ×3 (15:15→22:30)
[2021-09-28] MEDS ORDERED: IV NORMAL SALINE 500 ML IV ONE (15:30)
[2021-09-28] MEDS ORDERED: HYDROMORPHONE 2 MG/1 ML DISP.SYRIN IV ONE (15:30)
[2021-09-28] MEDS: IV NS 1000 ML 1,000 ML IV PRN (15:47)
[2021-09-28] MEDS: CEFAZOLIN 1 G in IV DEXTROSE 5% 50 ML IV SCH (16:44)
[2021-09-28 16:47] VITALS: BP 104/34
--- NOTE | 2021-09-28 19:53 | NUR ---
Received with family at bedside.complaints of pain to the post operative site. blood pressure is low parameter for pain medication. will call the attending physician
--- NOTE | 2021-09-28 19:59 | NUR ---
Epic on duty paged to inform about the patient complaints of pain but the bp is 91/56 . message left,awaiting response Addendum: 09/28/21 at 2002 by REGISTRY [facility] RN1 RN with orders and carried out.
--- NOTE | 2021-09-28 20:06 | NUR ---
patient will be placed on telemetry as per order
[2021-09-28 20:36] VITALS: BP 91/49
[2021-09-28] MEDS: ATORVASTATIN 20 MG TABLET PO SCH (20:43)
[2021-09-28] MEDS: DOCUSATE SODIUM 100 MG CAPSULE PO SCH (20:43)
[2021-09-28] MEDS ORDERED: METOPROLOL SUCCINATE XL 50 MG TAB.SR.24H PO SCH (21:00)
[2021-09-28 22:25] VITALS: BP 70/34
[2021-09-28] MEDS ORDERED: HYDROCORTISONE SOD SUCCINATE 100 MG/2 ML VIAL IV ONE (22:38)
[2021-09-28 23:06] VITALS: BP 91/45
[2021-09-28 23:20] VITALS: BP 94/40
--- NOTE | 2021-09-28 23:26 | NUR ---
Assumed care of patient. Report received from Leandra GALLARDO. Addendum: 09/28/21 at 2330 by REGISTRY [facility] PAULINA1 PAULINA report given for further care
[2021-09-29 00:24] VITALS: BP 114/82
[2021-09-29] MEDS: CEFAZOLIN 1 G in IV DEXTROSE 5% 50 ML IV SCH (00:50)
[2021-09-29] MEDS: IV NS 1000 ML 1,000 ML IV PRN ×2 (00:56→14:29)
[2021-09-29 04:00] VITALS: BP 118/41
[2021-09-29] MEDS ORDERED: HYDROCORTISONE SOD SUCCINATE 100 MG/2 ML VIAL IV SCH (06:00)
[2021-09-29] MEDS: PANTOPRAZOLE SODIUM 40 MG TABLET.DR PO SCH (06:07)
--- NOTE | 2021-09-29 06:18 | NUR ---
Pt slept intermittently. Denies pain or SOB at this time. Able to urinate in small amounts in urinal, states that it is usually "hard for him to urinate a lot, even at home." Abduction pillow in place. IV site intact. Pt was hypotensive throughout shift, SBP in 70s, 500cc bolus given at beginning of shift, followed by another 500cc bolus and Solu-Cortef. Pts BP went up to 91/56. Annette Peralta made aware. Last BP this morning was 118/41. Pt denies dizziness.
[2021-09-29 06:59] LABS: MEAN CORPUSCULAR HEMOGLOBIN 30.6 uug (23.8-33.4); PLATELET COUNT (AUTO) 203 K/uL (152-348)
[2021-09-29 07:14] LABS: CARBON DIOXIDE 24 mmol/L (21-32); CHLORIDE 106 mmol/L (98-107); CREATININE 1.7 mg/dL (0.6-1.3); GLUCOSE 170 mg/dL (74-106); MAGNESIUM 1.4 mg/dL (1.8-2.4); PHOSPHOROUS 5.1 mg/dL (2.5-4.9); POTASSIUM 4.8 mmol/L (3.5-5.1); UREA NITROGEN, BLOOD 27 mg/dL (7-18)
--- NOTE | 2021-09-29 08:00 | NUR ---
AWAKE ALERT AND ORIENTED X3 C/O HIP PAIN MEDICATED WITH PRN MEDS
[2021-09-29] MEDS: HYDROCODONE/APAP 10-325 MG TABLET PO PRN (08:30)
[2021-09-29] MEDS: ASPIRIN EC 81 MG TABLET.DR PO SCH (08:30)
[2021-09-29] MEDS ORDERED: ASPIRIN 325 MG TABLET PO SCH (09:00)
[2021-09-29] MEDS ORDERED: LOSARTAN POTASSIUM 25 MG TABLET PO SCH (09:00)
[2021-09-29] MEDS: METOPROLOL SUCCINATE XL 50 MG TAB.SR.24H PO SCH (09:12)
[2021-09-29] MEDS: MAGNESIUM SULFATE/D5W 100 ML IV SCH ×2 (10:51→11:37)
--- NOTE | 2021-09-29 11:00 | NUR ---
SEEN BY PT,OT FOR THERAPY SEE NOTES.
[2021-09-29 12:00] VITALS: BP 93/48
--- NOTE | 2021-09-29 14:58 | NUR ---
PATIENT STILL NOTED WITH FREQUENT URINATION BLADDER SCAN POST VOID READS 436 ML, OFFERED DEVINE CATH INSERTION PATIENT BADLY REFUSED ARGELIA VALDEZ ASSISTANT SUPERINTENDENT AWARE.
[2021-09-29 16:00] VITALS: BP 122/54
[2021-09-29 20:00] VITALS: BP 114/40
--- NOTE | 2021-09-29 20:02 | NUR ---
Patient in bed Awake and able to make needs known.O2 at 2LPM via NC saturating well.No s/s of distress noted.Denies pain at this time. NSR on Tele.Iv patent and intact on left FA with IVF infusing well.S/p RT hip total replacement .Surgical site with dressing intact,clean and dry. Abduction pillow in place.SCD pump functioning well.Patient able to use urinal ,noted with small frequent urination. Bladder non distended. Denies pain upon palpitation.Offered f/c insertion. Patient strongly refused catheter insertion at this time. Will continue to monitor.
[2021-09-29] MEDS: ATORVASTATIN 20 MG TABLET PO SCH (20:19)
[2021-09-29] MEDS: DOCUSATE SODIUM 100 MG CAPSULE PO SCH (20:20)
[2021-09-30] VITALS: BP 104/55
[2021-09-30] MEDS: IV NS 1000 ML 1,000 ML IV PRN (03:03)
[2021-09-30 04:00] VITALS: BP 109/61
[2021-09-30] MEDS: PANTOPRAZOLE SODIUM 40 MG TABLET.DR PO SCH (06:06)
[2021-09-30 06:28] LABS: HEMATOCRIT 24.2 % (36.7-47.1); MEAN CORPUSCULAR HEMOGLOBIN 30.8 uug (23.8-33.4); MEAN CORPUSCULAR VOLUME 90.9 fL (73.0-96.2); PLATELET COUNT (AUTO) 197 K/uL (152-348)
[2021-09-30 06:35] LABS: CREATININE 1.2 mg/dL (0.6-1.3); POTASSIUM 4.5 mmol/L (3.5-5.1)
--- NOTE | 2021-09-30 07:30 | NUR ---
Received patient resting in bed, easily arousable. No respiratory distress at the moment. Sinus rhythm on the monitor. 2L nasal cannula attached to patient. Normal saline running at 75mL/hr. Safety precautions in place. Will continue to monitor patient.
[2021-09-30] MEDS: ASPIRIN EC 81 MG TABLET.DR PO SCH (08:41)
[2021-09-30] MEDS: METOPROLOL SUCCINATE XL 50 MG TAB.SR.24H PO SCH (08:49)
[2021-09-30] MEDS: HYDROCODONE/APAP 10-325 MG TABLET PO PRN (09:40)
[2021-09-30] MEDS ORDERED: ASPI-618 PO (10:55)
[2021-09-30] MEDS ORDERED: METO-357 PO (10:55)
[2021-09-30] MEDS ORDERED: ZOLP5TAB2 PO (10:55)
[2021-09-30] MEDS ORDERED: MAGN400O6 PO (10:55)
[2021-09-30] MEDS ORDERED: HYDR-3980 PO (10:55)
[2021-09-30] MEDS ORDERED: PANT40TA49 PO (10:55)
[2021-09-30] MEDS ORDERED: ACET325T53 PO (10:55)
[2021-09-30] MEDS ORDERED: DOCU-141 PO (10:55)
[2021-09-30 11:08] VITALS: BP 95/44
[2021-09-30] MEDS ORDERED: SOD FERRIC GLUC COMPLX/SUCROSE 125 MG in IV NORMAL SALINE 100 ML IV SCH (14:00)
--- NOTE | 2021-09-30 15:04 | NUR ---
Dr. Coello at bedside assessing patient.
[2021-09-30 16:33] VITALS: BP 120/61
[2021-09-30] MEDS ORDERED: PROPOFOL 200 MG/20 ML BOTTLE IV ONE (18:59)
[2021-09-30] MEDS ORDERED: PHENYLEPHRINE 10 MG/1 ML VIAL IV ONE (18:59)
[2021-09-30] MEDS ORDERED: EPINEPHRINE 1:10,000 1 MG/10 ML DISP.SYRIN IV ONE (18:59)
[2021-09-30] MEDS ORDERED: SEVOFLURANE 250 ML BOTTLE IH ONE (18:59)
[2021-09-30] MEDS ORDERED: EPHEDRINE SULFATE 50 MG/ML AMPUL IM ONE (18:59)
[2021-09-30] MEDS ORDERED: GLYCOPYRROLATE 0.2 MG/ML VIAL IJ ONE (18:59)
[2021-09-30] MEDS ORDERED: SUCCINYLCHOLINE CHLORIDE 200 MG/10 ML VIAL IV ONE (18:59)
[2021-09-30] MEDS ORDERED: CEFAZOLIN 1 G VIAL IM ONE (18:59)
[2021-09-30 20:29] VITALS: BP 103/47
== END 2021-09-30 19:00 | DRG 466 ==
LOC: DS 07:10 → MEDSURG3 13:00 → TELE3 20:07 → MEDSURG3 09-30 07:47
PROVIDERS: ADMIT Nurse Practitioner Acute Care; ATTEND Nurse Practitioner Acute Care
PROC: 0QP604Z Removal of Internal Fixation Device from Right Upper Femur, Open Approach (ICD-10-PCS; principal; 2021-09-28)
PROC: 0SR90JA Replacement of Right Hip Joint with Synthetic Substitute, Uncemented, Open Approach (ICD-10-PCS; 2021-09-28)
PROC: 0SP90JZ Removal of Synthetic Substitute from Right Hip Joint, Open Approach (ICD-10-PCS; 2021-09-28)
DX: S72.011A Unspecified intracapsular fracture of right femur, initial encounter for closed fracture (principal); N17.0 Acute kidney failure with tubular necrosis; M87.251 Osteonecrosis due to previous trauma, right femur; I44.2 Atrioventricular block, complete; G89.4 Chronic pain syndrome; X58.XXXA Exposure to other specified factors, initial encounter; Y92.89 Other specified places as the place of occurrence of the external cause; I25.2 Old myocardial infarction; Z95.0 Presence of cardiac pacemaker; I95.2 Hypotension due to drugs; T41.205A Adverse effect of unspecified general anesthetics, initial encounter; Y92.230 Patient room in hospital as the place of occurrence of the external cause; Z87.891 Personal history of nicotine dependence; Z95.5 Presence of coronary angioplasty implant and graft; M12.551 Traumatic arthropathy, right hip; I25.10 Atherosclerotic heart disease of native coronary artery without angina pectoris; D64.89 Other specified anemias; Z79.82 Long term (current) use of aspirin; Z79.899 Other long term (current) drug therapy; G89.18 Other acute postprocedural pain; I11.0 Hypertensive heart disease with heart failure; I50.9 Heart failure, unspecified
CPT/HCPCS: 36415; 71045; 73501; 73503; 83735; 84100; 85025; 86850; 86900; 86901; 97161; A4663; A6209; G0378; J0171; J0330; J0690; J1170; J1720; J2270; J2370; J2405; J2916; J3010; J3370; J3475; J3490; J7060; J7120

== ENCOUNTER 2021-09-30 20:00 | Inpatient (IN) | payer MEDICARE ==
[~2021-09-30] VITALS: Ht 175.3 cm; Wt 84.4 kg
--- NOTE | 2021-09-30 19:00 | NUR ---
Received patient on bed, alert, no shortness of breath noted, with abduction pillow in between legs. No complaint of pain. Encourage to use the urinal for voiding since patient is continent for bladder and bowel.
[~2021-09-30 20:00] MED LIST changes: +ACET325T53 PO; +ASPI-618 PO; -ASPI81TA31 PO; +DOCU-141 PO; +HYDR-3980 PO; +MAGN400O6 PO; -OXYC-128 PO; +PANT40TA49 PO; +ZOLP5TAB2 PO
[2021-09-30] MEDS ORDERED: REMEDY ESSENTIAL ZINC PASTE 113 GM TOP PRN (20:30)
[2021-09-30] MEDS ORDERED: ACETAMINOPHEN ES 500 MG TABLET- SA PATIENTS-PAIN ONLY PO PRN (21:30)
[2021-09-30] MEDS ORDERED: MAGNESIUM HYDROXIDE 30 ML LIQUID UDC PO PRN (21:30)
[2021-09-30] MEDS: METOPROLOL SUCCINATE XL 50 MG TAB.SR.24H PO SCH (21:30)
[2021-09-30] MEDS: DOCUSATE SODIUM 100 MG CAPSULE PO SCH (22:48)
[2021-09-30] MEDS: ZOLPIDEM 5 MG TABLET PO PRN (22:56)
[2021-10-01 04:00] VITALS: BP 102/51
[2021-10-01 06:00] LABS: MEAN CORPUSCULAR HEMOGLOBIN 30.5 uug (23.8-33.4); PLATELET COUNT (AUTO) 197 K/uL (152-348)
[2021-10-01 06:03] LABS: HEMATOCRIT 21.7 % (36.7-47.1); MEAN CORPUSCULAR VOLUME 90.6 fL (73.0-96.2)
--- NOTE | 2021-10-01 06:15 | NUR ---
Received call from [facility] at lab, critical result of Hemoglobin 7.3, HEmatocrit 21.7, informed Dr Howell, waiting for response. PAtient looks pale, not in labored breathing. Kept O2 at 2-3L/min. For continuity of care.
[2021-10-01] MEDS: PANTOPRAZOLE SODIUM 40 MG TABLET.DR PO SCH (06:23)
--- NOTE | 2021-10-01 06:54 | NUR ---
Informed Dr Olivo regarding patient`s status, he said he will come in the unit.
--- NOTE | 2021-10-01 06:59 | NUR ---
Patient slept well at night, abduction pillow kept in between legs, still with oxygen at 2L via NC, not in labored breathing. Meds given tolerated well, needs moderate to maximum assist when mobilizing on bed. For continuity of care.
[2021-10-01 08:00] VITALS: BP 112/60
[2021-10-01] MEDS ORDERED: METOPROLOL SUCCINATE XL 50 MG TAB.SR.24H PO SCH (09:00)
[2021-10-01] MEDS: METOPROLOL SUCCINATE XL 50 MG TAB.SR.24H PO SCH ×2 (11:48→20:24)
[2021-10-01] MEDS: ASPIRIN EC 81 MG TABLET.DR PO SCH (11:48)
[2021-10-01 15:27] VITALS: BP 108/46
[2021-10-01] MEDS: SOD FERRIC GLUC COMPLX/SUCROSE 125 MG in IV NORMAL SALINE 100 ML IV SCH (15:41)
[2021-10-01] MEDS: CEFTRIAXONE 1 G in IV DEXTROSE 5% 50 ML IV SCH (17:39)
[2021-10-01 20:00] VITALS: BP 100/49
[2021-10-01] MEDS: HYDROCODONE/APAP 10-325 MG TABLET PO PRN (20:23)
[2021-10-01] MEDS: ATORVASTATIN 20 MG TABLET PO SCH (20:23)
[2021-10-01] MEDS: DOCUSATE SODIUM 100 MG CAPSULE PO SCH (20:24)
[2021-10-01] MEDS: ZOLPIDEM 5 MG TABLET PO PRN (22:35)
[2021-10-02] VITALS (8 sets, daily range): BP systolic 109–132; BP diastolic 47–68
--- NOTE | 2021-10-02 05:46 | NUR ---
Alert and oriented x4, slept well this shift. C/o Pain to right hip x1, [place] provided as ordered- effective for pain control. S/P right hip revision. Original dressing in place, clean and dry. Brusing noted around site. Noted with one episode of anxiety with SOB at beginning of shift, relieve with relaxing and deep breathing technique. Midline in place to right upper arm. Safety measures continued.
[2021-10-02] MEDS: PANTOPRAZOLE SODIUM 40 MG TABLET.DR PO SCH (06:04)
[2021-10-02 06:13] LABS: HEMATOCRIT 21.5 % (36.7-47.1); MEAN CORPUSCULAR HEMOGLOBIN 30.1 uug (23.8-33.4); PLATELET COUNT (AUTO) 254 K/uL (152-348)
--- NOTE | 2021-10-02 06:43 | NUR ---
Critical lab 7.2 reported this AM. patient HGB is 7.3, orders for 1 unit PRBC given but unable to be carried out till this morning. Blood transfusion consent received from patient. PRBC are ready for brass pickler at blood bank, will endorse to day shift as transfusion will run into change of shift and transfusion will not be able to be given safely with close monitoring during change of shift.
[2021-10-02] MEDS: METOPROLOL SUCCINATE XL 50 MG TAB.SR.24H PO SCH ×2 (08:58→20:39)
[2021-10-02] MEDS: ASPIRIN EC 81 MG TABLET.DR PO SCH (08:58)
[2021-10-02] MEDS: HYDROCODONE/APAP 10-325 MG TABLET PO PRN ×2 (12:15→19:57)
[2021-10-02] MEDS: BACLOFEN 10 MG TABLET PO SCH ×2 (12:15→20:50)
--- NOTE | 2021-10-02 12:18 | NUR ---
[place] blood transfusion well. vss. no acute distress noted
[2021-10-02] MEDS: SOD FERRIC GLUC COMPLX/SUCROSE 125 MG in IV NORMAL SALINE 100 ML IV SCH (14:33)
[2021-10-02] MEDS: CEFTRIAXONE 1 G in IV DEXTROSE 5% 50 ML IV SCH (15:24)
[2021-10-02] MEDS: ATORVASTATIN 20 MG TABLET PO SCH (20:39)
[2021-10-02] MEDS: DOCUSATE SODIUM 100 MG CAPSULE PO SCH (20:39)
[2021-10-02] MEDS ORDERED: BACLOFEN 10 MG TABLET PO SCH (21:00)
[2021-10-03] MEDS: ZOLPIDEM 5 MG TABLET PO PRN ×2 (01:52→22:54)
[2021-10-03 01:57] LABS: *CLARITY,URINE CLEAR (CLEAR); *COLOR,URINE YELLOW (YELLOW)
[2021-10-03 01:58] LABS: *BILIRUBIN,URIN NEGATIVE (NEGATIVE); *BLOOD, URINE NEGATIVE (NEGATIVE); *KETONES,URINE TRACE (NEGATIVE); *UROBILINOGEN,URINE 0.2 E.U./dl (NORMAL); LEUKOCYTE ESTERASE ,URINE NEGATIVE (NEGATIVE); NITRITE, URINE NEGATIVE (NEGATIVE); PH,URINE 5.5 (5.0-8.0); UGLUCOSE NEGATIVE (NEGATIVE)
[2021-10-03 02:05] LABS: BACTERIA,URINE FEW /HPF (NONE SEEN); RBC,URINE 0-3 /HPF (0-3); SQUAMOUS EPITHELIAL CELL,UR FEW /HPF (NONE SEEN); WBC,URINE 0-3 /HPF (0-3)
[2021-10-03 02:06] LABS: MUCUS,URINE FEW /LPF (0-FEW)
[2021-10-03 04:48] VITALS: BP 98/50
[2021-10-03] MEDS: PANTOPRAZOLE SODIUM 40 MG TABLET.DR PO SCH (06:20)
--- NOTE | 2021-10-03 06:37 | NUR ---
No significant changes this shift. C/O pain to right side of neck, [place] and Baclofen provided as ordered- effective for pain. Ambien requested for insomnia, able to sleep continuous after Ambien administration. Urine collected and sent to lab. Ice provided for right hip- tolerates well. Safety measures in place. Call light within reach.
[2021-10-03 07:14] LABS: HEMATOCRIT 24.5 % (36.7-47.1); MEAN CORPUSCULAR HEMOGLOBIN 29.5 uug (23.8-33.4); MEAN CORPUSCULAR VOLUME 87.3 fL (73.0-96.2); PLATELET COUNT (AUTO) 250 K/uL (152-348)
[2021-10-03 08:00] VITALS: BP 115/54
[2021-10-03] MEDS: BACLOFEN 10 MG TABLET PO SCH ×2 (09:11→20:30)
[2021-10-03] MEDS: ASPIRIN EC 81 MG TABLET.DR PO SCH (09:11)
[2021-10-03] MEDS: METOPROLOL SUCCINATE XL 50 MG TAB.SR.24H PO SCH ×2 (09:13→20:30)
--- NOTE | 2021-10-03 09:22 | NUR ---
INDIVIDUALIZED PLAN OF CARE
[2021-10-03] MEDS: HYDROCODONE/APAP 10-325 MG TABLET PO PRN (10:18)
[2021-10-03] MEDS: SOD FERRIC GLUC COMPLX/SUCROSE 125 MG in IV NORMAL SALINE 100 ML IV SCH (13:50)
[2021-10-03] MEDS: CEFTRIAXONE 1 G in IV DEXTROSE 5% 50 ML IV SCH (15:19)
[2021-10-03 16:00] VITALS: BP 111/52
[2021-10-03] MEDS: ATORVASTATIN 20 MG TABLET PO SCH (20:29)
[2021-10-03] MEDS: DOCUSATE SODIUM 100 MG CAPSULE PO SCH (20:30)
[2021-10-03 20:31] VITALS: BP 112/62
[2021-10-04 04:10] VITALS: BP 116/58
[2021-10-04] MEDS: PANTOPRAZOLE SODIUM 40 MG TABLET.DR PO SCH (06:55)
[2021-10-04 07:48] VITALS: BP 131/53
[2021-10-04] MEDS: HYDROCODONE/APAP 10-325 MG TABLET PO PRN (09:17)
[2021-10-04] MEDS: BACLOFEN 10 MG TABLET PO SCH ×2 (09:17→20:59)
[2021-10-04] MEDS: METOPROLOL SUCCINATE XL 50 MG TAB.SR.24H PO SCH ×2 (09:18→20:59)
[2021-10-04] MEDS: ASPIRIN EC 81 MG TABLET.DR PO SCH (09:18)
[2021-10-04] MEDS: SOD FERRIC GLUC COMPLX/SUCROSE 125 MG in IV NORMAL SALINE 100 ML IV SCH (14:06)
--- NOTE | 2021-10-04 14:36 | NUR ---
Patient was noted with minimal edema to bilateral lower ext. Dr Gruber made aware, patient will be seen during rounds. Patient is aware. will continue to monitor.
[2021-10-04 16:00] VITALS: BP 116/44
[2021-10-04] MEDS: CEFTRIAXONE 1 G in IV DEXTROSE 5% 50 ML IV SCH (16:18)
--- NOTE | 2021-10-04 18:43 | NUR ---
No acute distress identified. remained stable. Midline intact, patent, dressing changed. Refused echo MD aware and will see patient. safety measures maintained. kept call light within reach. all due meds given. all needs attended. will endorse to the next shift for continuity of care.
[2021-10-04 20:19] VITALS: BP 136/49
[2021-10-04] MEDS: ATORVASTATIN 20 MG TABLET PO SCH (20:59)
[2021-10-04] MEDS: DOCUSATE SODIUM 100 MG CAPSULE PO SCH (20:59)
[2021-10-04] MEDS: ZOLPIDEM 5 MG TABLET PO PRN (22:48)
[2021-10-05 04:00] VITALS: BP 107/52
--- NOTE | 2021-10-05 04:25 | NUR ---
AAOx4 Patient S/P Right total hip revision and hardware removal. Right hip dressing with steristrips clean dry and intact. No complaints presented during the shift. Voiding in the urinal. Kept comfortable. On 2L via nasal cannula, pulse 0x96%. Will monitor patient.VSS.
[2021-10-05] MEDS: PANTOPRAZOLE SODIUM 40 MG TABLET.DR PO SCH (06:09)
[2021-10-05 08:02] VITALS: BP 117/49
[2021-10-05] MEDS: BACLOFEN 10 MG TABLET PO SCH ×2 (08:45→20:20)
[2021-10-05] MEDS: ASPIRIN EC 81 MG TABLET.DR PO SCH (08:45)
[2021-10-05] MEDS: METOPROLOL SUCCINATE XL 50 MG TAB.SR.24H PO SCH (08:46)
[2021-10-05] MEDS ORDERED: FUROSEMIDE 20 MG/2 ML VIAL IV ONE ×2 (09:15→15:00)
--- NOTE | 2021-10-05 09:36 | NUR ---
Patient refused lasix due to patient wanting to complete PT before hand.
--- NOTE | 2021-10-05 10:59 | NUR ---
Patient left for PT. Will attempt to give patient lasix upon arrival back to unit.
--- NOTE | 2021-10-05 11:05 | NUR ---
INTERDISCIPLINARY TEAM CONFERENCE
[2021-10-05] MEDS: SOD FERRIC GLUC COMPLX/SUCROSE 125 MG in IV NORMAL SALINE 100 ML IV SCH (14:44)
[2021-10-05] MEDS: CEFTRIAXONE 1 G in IV DEXTROSE 5% 50 ML IV SCH (15:52)
[2021-10-05 16:25] VITALS: BP 120/58
[2021-10-05] MEDS: HYDROCODONE/APAP 10-325 MG TABLET PO PRN (17:59)
--- NOTE | 2021-10-05 18:19 | NUR ---
Patient tolerated care well today. Patient able to perform PT exercises with moderate assistance. Patient completed last bag of Ferrlecit and Rocephin. Patient in no apparent distress or discomfort. Comfort measures provided. Bed left in lowest position with call light within reach. IV site intact and patent. Will endorse information to PM nurse.
--- NOTE | 2021-10-05 19:30 | NUR ---
Received patient lying in bed. AAOx3-4. Family at bedside. Denies any pain or SOB. On O2 at 2LPM via NC in place. Right UA midline intact and patent. Dressing on right hip dry and clean. Needs assessed and attended to. Safety measure initiated and call light within reached.
[2021-10-05] MEDS: DOCUSATE SODIUM 100 MG CAPSULE PO SCH (20:20)
[2021-10-05] MEDS: ATORVASTATIN 20 MG TABLET PO SCH (20:20)
[2021-10-05 20:37] VITALS: BP 111/51
[2021-10-06] MEDS: ZOLPIDEM 5 MG TABLET PO PRN ×2 (01:27→21:27)
[2021-10-06 04:00] VITALS: BP 106/49
--- NOTE | 2021-10-06 05:40 | NUR ---
Patient slept well last night. No complain of pain or SOB. O2 at 2LPM via NC. Midline on right upper arm remains intact and patent. Needs attended to and met. Safety measure maintained and call light within reached.
[2021-10-06] MEDS: PANTOPRAZOLE SODIUM 40 MG TABLET.DR PO SCH (06:20)
[2021-10-06 06:49] LABS: HEMATOCRIT 25.6 % (36.7-47.1); MEAN CORPUSCULAR HEMOGLOBIN 29.5 uug (23.8-33.4); MEAN CORPUSCULAR VOLUME 89.1 fL (73.0-96.2); PLATELET COUNT (AUTO) 371 K/uL (152-348)
[2021-10-06 06:56] LABS: CREATININE 0.9 mg/dL (0.6-1.3); MAGNESIUM 1.8 mg/dL (1.8-2.4); POTASSIUM 3.5 mmol/L (3.5-5.1)
[2021-10-06] MEDS ORDERED: POTASSIUM CHLORIDE 20 MEQ POWDER PACKET GT ONE (08:06)
[2021-10-06 08:08] VITALS: BP 113/56
[2021-10-06] MEDS: METOPROLOL SUCCINATE XL 50 MG TAB.SR.24H PO SCH (08:44)
[2021-10-06] MEDS: BACLOFEN 10 MG TABLET PO SCH ×2 (08:45→21:27)
[2021-10-06] MEDS: ASPIRIN EC 81 MG TABLET.DR PO SCH (08:45)
[2021-10-06] MEDS: MAGNESIUM SULFATE/D5W 100 ML IV SCH ×2 (08:47→11:07)
[2021-10-06] MEDS: HYDROCODONE/APAP 10-325 MG TABLET PO PRN (10:10)
--- NOTE | 2021-10-06 12:16 | NUR ---
Patient spoke to Allison FORD regarding patients dizziness. Allison FORD asked to take orthostatic blood pressure readings. Will attempt readings when PT comes.
[2021-10-06] MEDS: ACETAMINOPHEN 325 MG TABLET PO PRN (13:50)
--- NOTE | 2021-10-06 14:08 | NUR ---
Patient refusing to have orthostatic checked despite complaining of feeling "whoozy" Patient asking about leaving AMA. Patient unsure of decision at the time.
[2021-10-06 16:28] VITALS: BP 112/56
--- NOTE | 2021-10-06 18:25 | NUR ---
Patient received care well today. Patient complained of dizziness and matter was addressed to Allison MANAGER. Patient refused PT today and to have orthostatic done. Patient questioned about leaving AMA. Patient states they want to stay to observe if they will get better. IV site intact and patent. Bed left in lowest position with call light within reach. Will endorse information to PM nurse.
--- NOTE | 2021-10-06 19:00 | NUR ---
Received patient on bed, alert, and oriented x4, no shortness of breath, on oxygen at 2L via NC. No complaint of pain.
[2021-10-06 20:38] VITALS: BP 127/58
--- NOTE | 2021-10-06 21:00 | NUR ---
Patient requested fro [place] to be taken before going to sleep. Patient requested to check his right hip surgical site, no redness noted, no tenderness around the operative site.
[2021-10-06] MEDS: ATORVASTATIN 20 MG TABLET PO SCH (21:27)
[2021-10-06] MEDS: DOCUSATE SODIUM 100 MG CAPSULE PO SCH (21:27)
[2021-10-07 04:03] VITALS: BP 133/65
--- NOTE | 2021-10-07 05:51 | NUR ---
Patient slept well, without any complaint. Patient continued to use urinal for voiding. compliant with medications. Needs minimal to moderate assist when mobilizing in bed. Patient in fair condition. For continuity of care.
--- NOTE | 2021-10-07 06:00 | NUR ---
Patient slept well. no complaint of pain, continued to use the urinal for voiding. Patient in fair condition.
[2021-10-07] MEDS: PANTOPRAZOLE SODIUM 40 MG TABLET.DR PO SCH (06:17)
[2021-10-07] MEDS: HYDROCODONE/APAP 10-325 MG TABLET PO PRN (09:40)
[2021-10-07] MEDS: ASPIRIN EC 81 MG TABLET.DR PO SCH (09:40)
[2021-10-07] MEDS: BACLOFEN 10 MG TABLET PO SCH ×2 (09:40→21:33)
[2021-10-07] MEDS: METOPROLOL SUCCINATE XL 50 MG TAB.SR.24H PO SCH (09:41)
[2021-10-07 10:20] VITALS: BP 129/56
[2021-10-07 16:49] VITALS: BP 129/62
--- NOTE | 2021-10-07 19:00 | NUR ---
Received patient on bed, alert and oriented x4, no shortness of breath, on oxygen at 1L via NC, no complaint of pain at this time.
[2021-10-07 20:37] VITALS: BP 120/50
[2021-10-07] MEDS: DOCUSATE SODIUM 100 MG CAPSULE PO SCH (21:33)
[2021-10-07] MEDS: ATORVASTATIN 20 MG TABLET PO SCH (21:33)
[2021-10-07] MEDS: ZOLPIDEM 5 MG TABLET PO PRN (22:33)
[2021-10-08 04:37] VITALS: BP 119/58
[2021-10-08] MEDS: PANTOPRAZOLE SODIUM 40 MG TABLET.DR PO SCH (06:11)
--- NOTE | 2021-10-08 06:36 | NUR ---
Patient has no bowel movement for couple of days, requested for prune juice, half glass of prune juice given.
[2021-10-08 08:00] VITALS: BP 128/50
[2021-10-08] MEDS: ASPIRIN EC 81 MG TABLET.DR PO SCH (08:47)
[2021-10-08] MEDS: BACLOFEN 10 MG TABLET PO SCH ×2 (08:47→20:36)
[2021-10-08] MEDS: HYDROCODONE/APAP 10-325 MG TABLET PO PRN (08:48)
[2021-10-08] MEDS: METOPROLOL SUCCINATE XL 50 MG TAB.SR.24H PO SCH (08:48)
[2021-10-08] MEDS: ENSURE ENLIVE (VAN) 240 ML LIQUID PO SCH (11:41)
--- NOTE | 2021-10-08 15:31 | NUR ---
Patient remain awake, alert, and oriented x4, no shortness of breath, on oxygen at 1L via NC O2 sat 97% . Medicated for pain as ordered Up in W/C with PT all do Meds given patient compliant safety measures in place bed in low position, bed alarms on, call light within reach will continue to monitor closely.
[2021-10-08 16:03] VITALS: BP 115/41
--- NOTE | 2021-10-08 20:12 | NUR ---
Patient AALOx4. on oxygen at 1L via NC .No s/s of distress noted.Compliant with meds and tx . Safety measures in place. Bed in low position.Call light within reach .Family members at bedside.
[2021-10-08 20:29] VITALS: BP 117/49
[2021-10-08] MEDS: ATORVASTATIN 20 MG TABLET PO SCH (20:36)
[2021-10-08] MEDS: DOCUSATE SODIUM 100 MG CAPSULE PO SCH (20:36)
[2021-10-08] MEDS: ZOLPIDEM 5 MG TABLET PO PRN (22:39)
[2021-10-09 04:15] VITALS: BP 119/59
[2021-10-09] MEDS: PANTOPRAZOLE SODIUM 40 MG TABLET.DR PO SCH (06:18)
[2021-10-09 07:40] VITALS: BP 124/57
[2021-10-09] MEDS: BACLOFEN 10 MG TABLET PO SCH ×2 (07:43→21:20)
[2021-10-09] MEDS: ASPIRIN EC 81 MG TABLET.DR PO SCH (07:43)
[2021-10-09] MEDS: HYDROCODONE/APAP 10-325 MG TABLET PO PRN (07:43)
[2021-10-09] MEDS: METOPROLOL SUCCINATE XL 50 MG TAB.SR.24H PO SCH (07:44)
[2021-10-09] MEDS: ENSURE ENLIVE (VAN) 240 ML LIQUID PO SCH (07:45)
[2021-10-09 16:09] VITALS: BP 117/57
--- NOTE | 2021-10-09 20:00 | NUR ---
Patient AAOx4. Friend at bedside. On telemonitor, showing sinus rhythm. On 1L O2 at 1L via NC. No complaints of distress at this time. Safety measures in place, call light button within reach. Will continue to monitor.
[2021-10-09 20:03] VITALS: BP 121/48
[2021-10-09] MEDS: ATORVASTATIN 20 MG TABLET PO SCH (21:20)
[2021-10-09] MEDS: DOCUSATE SODIUM 100 MG CAPSULE PO SCH (21:21)
[2021-10-09] MEDS: ZOLPIDEM 5 MG TABLET PO PRN (23:17)
--- NOTE | 2021-10-09 23:30 | NUR ---
Pt requested for sleeping medication, given. Will continue to monitor.
[2021-10-10 04:03] VITALS: BP 140/69
[2021-10-10] MEDS: PANTOPRAZOLE SODIUM 40 MG TABLET.DR PO SCH (06:24)
--- NOTE | 2021-10-10 07:02 | NUR ---
Patient slept through the night with complaints. IV access at ISMAEL ML patent and intact. All needs attended to and met. Safety precautions maintained. Pt requested for [place] prior to PT. Will endorse to day shift.
[2021-10-10 07:44] VITALS: BP 124/55
[2021-10-10] MEDS: BACLOFEN 10 MG TABLET PO SCH ×2 (08:45→20:06)
[2021-10-10] MEDS: METOPROLOL SUCCINATE XL 50 MG TAB.SR.24H PO SCH (08:46)
[2021-10-10] MEDS: ASPIRIN EC 81 MG TABLET.DR PO SCH (08:47)
[2021-10-10] MEDS: HYDROCODONE/APAP 10-325 MG TABLET PO PRN (08:55)
--- NOTE | 2021-10-10 09:00 | NUR ---
NSG: Received patient lying on bed, alert and oriented x4, no shortness of breath, on oxygen at 1L via NC, no complaint of pain at this time. norco given for pain. continue plan of care. call light w/in reach.
[2021-10-10] MEDS: ENSURE ENLIVE (VAN) 240 ML LIQUID PO SCH (09:18)
[2021-10-10 16:24] VITALS: BP 111/45
--- NOTE | 2021-10-10 19:30 | NUR ---
Received patient lying in bed. AAOx3-4. Denies any pain or SOB. On O2 at 1LPM via NC in place. O2 sat at 100%. Right UA midline intact and patent. Dressing on right hip dry and clean. Needs assessed and attended to. Safety measure initiated and call light within reached.
[2021-10-10 20:03] VITALS: BP 121/56
[2021-10-10] MEDS: DOCUSATE SODIUM 100 MG CAPSULE PO SCH (20:06)
[2021-10-10] MEDS: ATORVASTATIN 20 MG TABLET PO SCH (20:06)
[2021-10-10] MEDS: ZOLPIDEM 5 MG TABLET PO PRN (22:40)
[2021-10-11 04:03] VITALS: BP 120/59
--- NOTE | 2021-10-11 05:55 | NUR ---
Patient slept well last night after taking Ambien. No complain of pain or SOB. Remains on O2 at 1LPM via NC per patient request. O2 sat at 99%. Midline on right upper arm remains intact and patent. Needs attended to and met. Safety measure maintained and call light within reached.
[2021-10-11] MEDS: PANTOPRAZOLE SODIUM 40 MG TABLET.DR PO SCH (06:16)
[2021-10-11 07:30] VITALS: BP 128/57
[2021-10-11] MEDS: ENSURE ENLIVE (VAN) 240 ML LIQUID PO SCH (08:12)
[2021-10-11] MEDS: METOPROLOL SUCCINATE XL 50 MG TAB.SR.24H PO SCH (09:26)
[2021-10-11] MEDS: BACLOFEN 10 MG TABLET PO SCH ×2 (09:26→20:28)
[2021-10-11] MEDS: ASPIRIN EC 81 MG TABLET.DR PO SCH (09:26)
[2021-10-11] MEDS: HYDROCODONE/APAP 10-325 MG TABLET PO PRN (09:30)
--- NOTE | 2021-10-11 11:58 | NUR ---
Pt is a/o x 4, cooperative with care. Requests pain medication prior to physical therapy only. No signs of acute distress, comfort measures provided. Hip dressing reapplied, was partially removed form moisture. Right hip xray ordered per MD order. Will continue to monitor.
[2021-10-11 16:00] VITALS: BP 115/57
--- NOTE | 2021-10-11 19:30 | NUR ---
Received patient sitting upright in bed. Family at bedside. AAOx3-4. No complain of pin or SOB. On O2 at 1LPM via NC in place. O2 sat at 99%. Right UA midline intact and patent. Needs assessed and attended to. Safety measure initiated and call light within reached.
[2021-10-11 20:03] VITALS: BP 118/51
[2021-10-11] MEDS: DOCUSATE SODIUM 100 MG CAPSULE PO SCH (20:28)
[2021-10-11] MEDS: ATORVASTATIN 20 MG TABLET PO SCH (20:28)
[2021-10-11] MEDS: ZOLPIDEM 5 MG TABLET PO PRN (22:54)
[2021-10-12 04:00] VITALS: BP 120/56
[2021-10-12] MEDS: PANTOPRAZOLE SODIUM 40 MG TABLET.DR PO SCH (06:06)
--- NOTE | 2021-10-12 07:00 | NUR ---
Patient uses O2 at 1LPM via NC PRN. Due meds given and taken. Dressing on left hip incision site changed during the shift. Needs attended to and met. Safety measure maintained and call light within reached.
[2021-10-12 08:00] VITALS: BP 119/52
[2021-10-12] MEDS: ASPIRIN EC 81 MG TABLET.DR PO SCH (08:39)
[2021-10-12] MEDS: BACLOFEN 10 MG TABLET PO SCH ×2 (08:39→21:16)
[2021-10-12] MEDS: METOPROLOL SUCCINATE XL 50 MG TAB.SR.24H PO SCH (08:40)
[2021-10-12] MEDS: ENSURE ENLIVE (VAN) 240 ML LIQUID PO SCH (08:40)
[2021-10-12] MEDS: HYDROCODONE/APAP 10-325 MG TABLET PO PRN (08:40)
--- NOTE | 2021-10-12 10:20 | NUR ---
INTERDISCIPLINARY TEAM CONFERENCE
--- NOTE | 2021-10-12 13:10 | NUR ---
Patient was off 02, kept on room air per MD order and recheck. Rechecked o2 sat on room air since am, noted with 95% reading. Denies discomfort, no distress identified.
[2021-10-12 16:00] VITALS: BP 108/48
--- NOTE | 2021-10-12 18:41 | NUR ---
No concerns identified during the shift. denies pain. dressing changed to the right hip, no drainage, intact. IV midline to the ISMAEL, intact and patent. remained stable. safety measures maintained. kept call light within reach. frequent checks done. all due meds given. all needs attended. will endorse to the next shift for continuity of care.
[2021-10-12 20:38] VITALS: BP 118/49
[2021-10-12] MEDS: ATORVASTATIN 20 MG TABLET PO SCH (21:15)
[2021-10-12] MEDS: DOCUSATE SODIUM 100 MG CAPSULE PO SCH (21:16)
[2021-10-13] MEDS: ZOLPIDEM 5 MG TABLET PO PRN ×2 (01:46→22:23)
[2021-10-13 04:00] VITALS: BP 117/55
[2021-10-13] MEDS: PANTOPRAZOLE SODIUM 40 MG TABLET.DR PO SCH (06:23)
--- NOTE | 2021-10-13 06:27 | NUR ---
Patient in no acute distress noted. On Ra, Right hip dressing intact clean and dry. IV midline to ISMAEL, intact and patent.Bilateral both with mild edema.Elevated with pillow. Safety measures maintained. kept call light within reach. All needs attended. will endorse to the next shift for continuity of care.
[2021-10-13 07:52] VITALS: BP 125/58
[2021-10-13] MEDS: METOPROLOL SUCCINATE XL 50 MG TAB.SR.24H PO SCH (09:00)
[2021-10-13] MEDS: HYDROCODONE/APAP 10-325 MG TABLET PO PRN (09:07)
[2021-10-13] MEDS: BACLOFEN 10 MG TABLET PO SCH ×2 (09:07→20:31)
[2021-10-13] MEDS: ASPIRIN EC 81 MG TABLET.DR PO SCH (09:07)
[2021-10-13] MEDS: ENSURE ENLIVE (VAN) 240 ML LIQUID PO SCH (09:07)
[2021-10-13 11:46] VITALS: BP 124/64
[2021-10-13 16:03] VITALS: BP 121/54
--- NOTE | 2021-10-13 18:46 | NUR ---
Patient tolerated care well today with no complaints. Patient's overall mood improving. Patient improving with physical therapy. Patient's IV site is intact and patent. Plan of care to continue patient's physical therapy. Bed left in lowest position with call light within reach. Will endorse information to PM nurse.
[2021-10-13 20:06] VITALS: BP_SYST 116; BP_SYST 153; BP_DIAS 48; BP_DIAS 67
[2021-10-13] MEDS: ATORVASTATIN 20 MG TABLET PO SCH (20:31)
[2021-10-13] MEDS: DOCUSATE SODIUM 100 MG CAPSULE PO SCH (20:31)
--- NOTE | 2021-10-13 23:35 | NUR ---
Received pt awake and afebrile upon initial rounds. No respiratory distress. He is alert and oriented x4, able to make needs known. ISMAEL midline remains patent and intact. Denies pain and discomfort. Ambien PRN given. All needs attended. Call light placed within reach. Will continue to monitor.
[2021-10-14 04:06] VITALS: BP 125/63
[2021-10-14] MEDS: ACETAMINOPHEN 325 MG TABLET PO PRN (04:45)
[2021-10-14] MEDS: PANTOPRAZOLE SODIUM 40 MG TABLET.DR PO SCH (06:06)
--- NOTE | 2021-10-14 06:36 | NUR ---
Pt slept intermittently throughout the night. No changes noted. Bladder scan done with 57 ml result. Denies pain and discomfort. All needs attended. Will endorse to next shift. Addendum: 10/14/21 at 0639 by ARISTEO CERDA RN Disregard documentation, wrong patient.
[2021-10-14 07:55] VITALS: BP 127/64
[2021-10-14] MEDS: ENSURE ENLIVE (VAN) 240 ML LIQUID PO SCH (08:00)
[2021-10-14] MEDS: ASPIRIN EC 81 MG TABLET.DR PO SCH (08:00)
[2021-10-14] MEDS: BACLOFEN 10 MG TABLET PO SCH ×2 (08:00→20:48)
[2021-10-14] MEDS: METOPROLOL SUCCINATE XL 50 MG TAB.SR.24H PO SCH (08:00)
[2021-10-14] MEDS: HYDROCODONE/APAP 10-325 MG TABLET PO PRN (08:00)
[2021-10-14] MEDS ORDERED: FUROSEMIDE 20 MG TABLET PO ONE (08:30)
[2021-10-14] MEDS ORDERED: POTASSIUM CHLORIDE 20 MEQ TAB.PRT.SR PO ONE (08:30)
--- NOTE | 2021-10-14 09:40 | NUR ---
Received patient resting in bed comfortably with no signs of distress or discomfort. Patient seen by medical physiologist with new medications ordered prior to patient's proposed discharge for tomorrow. Patient to receive PT today. IV site intact and patent. Comfort measures provided.
[2021-10-14 16:00] VITALS: BP 110/52
--- NOTE | 2021-10-14 18:14 | NUR ---
Patient received care well throughout the day and has shown improvement in physical therapy during his stay. Patient's IV site intact and patent. Bed left in lowest position. Comfort measures provided. Will endorse information to PM nurse.
[2021-10-14 20:05] VITALS: BP 113/45
[2021-10-14] MEDS: DOCUSATE SODIUM 100 MG CAPSULE PO SCH (20:48)
[2021-10-14] MEDS: ATORVASTATIN 20 MG TABLET PO SCH (20:48)
--- NOTE | 2021-10-14 21:20 | NUR ---
Received pt awake and afebrile upon initial rounds with family at bedside. No respiratory distress. He is alert and oriented x4, able to make needs known. Denies pain and discomfort. All needs attended. Call light placed within reach. Will continue to monitor.
[2021-10-14] MEDS: ZOLPIDEM 5 MG TABLET PO PRN (22:43)
[2021-10-15] MEDS ORDERED: ASPIRIN EC 81 MG TABLET.DR PO ONE (03:30)
[2021-10-15] MEDS ORDERED: ASPIRIN EC 81 MG TABLET.DR PO SCH (04:00)
[2021-10-15 05:28] VITALS: BP 115/56
[2021-10-15] MEDS: PANTOPRAZOLE SODIUM 40 MG TABLET.DR PO SCH (06:09)
[2021-10-15 08:02] VITALS: BP 128/67
[2021-10-15] MEDS: HYDROCODONE/APAP 10-325 MG TABLET PO PRN (08:56)
[2021-10-15 08:57] VITALS: BP 129/69
[2021-10-15] MEDS: METOPROLOL SUCCINATE XL 50 MG TAB.SR.24H PO SCH (08:57)
[2021-10-15] MEDS: BACLOFEN 10 MG TABLET PO SCH (08:57)
[2021-10-15] MEDS: ENSURE ENLIVE (VAN) 240 ML LIQUID PO SCH (08:58)
--- NOTE | 2021-10-15 15:47 | NUR ---
patient is discharging to [facility], report given to Chelsey RN, patient is alert, oriented x4, no sob, resp even nonlabored, skin warm and dry to touch, no distress noted, skin intact, incision site dry and clean, belongings are accounted and signed
--- NOTE | 2021-10-15 18:00 | NUR ---
patient discharged to [facility], belongings are sent with him, IV removed, picked up by jolene, stable patient, alert oriented x4. no distress noted Addendum: 10/15/21 at 1857 by AVIVA MERRILL RN, RN patient own medication given to patient , med recon sent to the facility
== END 2021-10-15 17:45 | DRG 559 ==
PROVIDERS: ADMIT Physical Medicine & Rehabilitation Pain Medicine; ATTEND Physical Medicine & Rehabilitation Pain Medicine
PROC: 05HB33Z Insertion of Infusion Device into Right Basilic Vein, Percutaneous Approach (ICD-10-PCS; principal; 2021-10-01)
PROC: 30233N1 Transfusion of Nonautologous Red Blood Cells into Peripheral Vein, Percutaneous Approach (ICD-10-PCS; 2021-10-02)
DX: S72.011D Unspecified intracapsular fracture of right femur, subsequent encounter for closed fracture with routine healing (principal); I50.31 Acute diastolic (congestive) heart failure; J18.9 Pneumonia, unspecified organism; N17.0 Acute kidney failure with tubular necrosis; M87.251 Osteonecrosis due to previous trauma, right femur; N39.0 Urinary tract infection, site not specified; M16.51 Unilateral post-traumatic osteoarthritis, right hip; D64.9 Anemia, unspecified; G89.4 Chronic pain syndrome; I25.2 Old myocardial infarction; Z95.0 Presence of cardiac pacemaker; I25.10 Atherosclerotic heart disease of native coronary artery without angina pectoris; I10 Essential (primary) hypertension; Z87.891 Personal history of nicotine dependence; Z96.641 Presence of right artificial hip joint; M19.90 Unspecified osteoarthritis, unspecified site; R30.0 Dysuria; I11.0 Hypertensive heart disease with heart failure; Z98.61 Coronary angioplasty status; B96.89 Other specified bacterial agents as the cause of diseases classified elsewhere; R42 Dizziness and giddiness; Z20.822 Contact with and (suspected) exposure to COVID-19
CPT/HCPCS: 36415; 71045; 73501; 83735; 85025; 86850; 86900; 86901; 86920; 87086; 93005; 97161; 97535-GO-CO; J0696; J1940; J2916; J3475; J7040; P9016